=== PATIENT | male | born 1950 | race Caucasian/White ===

== ENCOUNTER → 2018-02-07 10:16 | Outpatient (CLI) | payer MEDICARE, OTHER, SELFPAY ==
[2018-02-07 11:35] LABS: Add Manual Diff / Slide Review NO; Basophils Percent Auto 0.7 % (0-2); Eosinophils Percent Auto 1.3 % (2-4); Hematocrit 38.6 % (41-53); Hemoglobin 13.6 g/dL (13.5-17.5); Lymphocytes Percent Auto 18.7 % (25-40); Mean Corpuscular HGB Conc 35.2 % (30-36); Mean Corpuscular Hemoglobin 32.8 PG (26-34); Mean Corpuscular Volume 93.2 fL (80-100); Monocytes Percent Auto 8.5 % (3-14); Neutrophils Absolute Auto 5700 /uL (3000-5900); Neutrophils Percent Auto 70.8 % (50-75); Platelet Count 217 X10^3/uL (150-400); Red Blood Cell Count 4.14 X10^6/uL (4.5-5.9)
[2018-02-07 11:54] LABS: Alanine Aminotransferase 32 IU/L (21-72); Albumin 4.3 g/dL (3.5-5.0); Albumin Globulin Ratio 1.4 (1.0-2.8); Alkaline Phosphatase 80 U/L (38-126); Aspartate Aminotransferase 33 IU/L (17-59); BUN Creatinine Ratio 41.4 (6-22); Bilirubin Total 0.6 mg/dL (0.2-1.3); Calcium 9.4 mg/dL (8.4-10.2); Estimated Glomerular Filt Rate > 60.0 mL/min (>60); Glucose 85 mg/dL (80-110); HEMOLYSIS < 15 (0-50); Potassium 3.9 mmol/L (3.4-5.1); Sodium 139 mmol/L (137-145); Total Protein 7.3 g/dL (6.3-8.2)
[2018-02-07 12:22] LABS: Testosterone 36.3 ng/dL (71.8-623)
[2018-02-07 12:23] LABS: Prostate Specific Antigen < 0.064 ng/mL (0.10-4.00)
[2018-02-09 18:58] LABS: 1 25 Dihydroxy Vitamin D 40 pg/mL (18-72)
== END ==
PROVIDERS: PCP Internal Medicine; Visit Provider Nurse Practitioner Gerontology
DX: C61 Malignant neoplasm of prostate (principal)
CPT/HCPCS: 36591; 80053; 82652; 84153; 84403; 85025

== ENCOUNTER → 2018-03-16 13:52 | Outpatient (CLI) | payer MEDICARE, OTHER, SELFPAY ==
[2018-03-16 14:09] LABS: Add Manual Diff / Slide Review NO; Basophils Percent Auto 0.9 % (0-2); Eosinophils Percent Auto 0.8 % (2-4); Hematocrit 40.2 % (41-53); Hemoglobin 13.9 g/dL (13.5-17.5); Lymphocytes Percent Auto 14.7 % (25-40); Mean Corpuscular HGB Conc 34.5 % (30-36); Mean Corpuscular Hemoglobin 32.6 PG (26-34); Mean Corpuscular Volume 94.3 fL (80-100); Monocytes Percent Auto 6.3 % (3-14); Neutrophils Absolute Auto 6300 /uL (3000-5900); Neutrophils Percent Auto 77.3 % (50-75); Platelet Count 254 X10^3/uL (150-400); Red Blood Cell Count 4.26 X10^6/uL (4.5-5.9); Red Cell Distribution Width 12.8 % (11.6-14.8); White Blood Cell Count 8.2 X10^3/uL (4.5-11.0)
[2018-03-16 14:24] LABS: Alanine Aminotransferase 29 IU/L (21-72); Albumin 4.3 g/dL (3.5-5.0); Albumin Globulin Ratio 1.5 (1.0-2.8); Alkaline Phosphatase 77 U/L (38-126); Aspartate Aminotransferase 30 IU/L (17-59); Bilirubin Total 0.7 mg/dL (0.2-1.3); Blood Urea Nitrogen 20 mg/dL (9-20); Calcium 9.6 mg/dL (8.4-10.2); Carbon Dioxide 30 mmol/L (22-32); Chloride 100 mmol/L (98-107); Estimated Glomerular Filt Rate > 60.0 mL/min (>60); Globulin 2.9 g/dL (1.7-4.1); Glucose 100 mg/dL (80-110); HEMOLYSIS < 15 (0-50); Potassium 4.2 mmol/L (3.4-5.1); Sodium 140 mmol/L (137-145); Total Protein 7.2 g/dL (6.3-8.2)
[2018-03-16 14:57] LABS: Testosterone 26.8 ng/dL (71.8-623)
[2018-03-16 15:00] LABS: Prostate Specific Antigen < 0.064 ng/mL (0.10-4.00)
== END ==
PROVIDERS: Family Provider Internal Medicine; PCP Internal Medicine; Visit Provider Nurse Practitioner Gerontology
DX: C61 Malignant neoplasm of prostate (principal)
CPT/HCPCS: 36415; 80053; 84153; 84403; 85025

== ENCOUNTER → 2018-06-13 14:47 | Outpatient (CLI) | payer MEDICARE, OTHER, SELFPAY ==
[2018-06-13 15:05] LABS: Add Manual Diff / Slide Review NO; Basophils Percent Auto 0.8 % (0-2); Eosinophils Percent Auto 0.4 % (2-4); Hematocrit 39.3 % (41-53); Hemoglobin 13.5 g/dL (13.5-17.5); Lymphocytes Percent Auto 13.9 % (25-40); Mean Corpuscular HGB Conc 34.4 % (30-36); Mean Corpuscular Hemoglobin 32.3 PG (26-34); Neutrophils Absolute Auto 7000 /uL (3000-5900); Neutrophils Percent Auto 78.9 % (50-75); Platelet Count 246 X10^3/uL (150-400); Red Blood Cell Count 4.18 X10^6/uL (4.5-5.9); Red Cell Distribution Width 12.5 % (11.6-14.8); White Blood Cell Count 8.8 X10^3/uL (4.5-11.0)
[2018-06-13 16:03] LABS: Alanine Aminotransferase 28 IU/L (21-72); Albumin 4.3 g/dL (3.5-5.0); Albumin Globulin Ratio 1.5 (1.0-2.8); Alkaline Phosphatase 87 U/L (38-126); Aspartate Aminotransferase 34 IU/L (17-59); BUN Creatinine Ratio 32.2 (6-22); Bilirubin Total 0.4 mg/dL (0.2-1.3); Blood Urea Nitrogen 29 mg/dL (9-20); Calcium 9.8 mg/dL (8.4-10.2); Carbon Dioxide 27 mmol/L (22-32); Chloride 105 mmol/L (98-107); Estimated Glomerular Filt Rate > 60.0 mL/min (>60); Globulin 2.9 g/dL (1.7-4.1); Glucose 109 mg/dL (80-110); HEMOLYSIS < 15 (0-50); Potassium 4.1 mmol/L (3.4-5.1); Sodium 143 mmol/L (137-145); Total Protein 7.2 g/dL (6.3-8.2)
[2018-06-13 16:35] LABS: Testosterone 18.3 ng/dL (71.8-623)
[2018-06-13 16:36] LABS: Prostate Specific Antigen < 0.064 ng/mL (0.10-4.00)
== END ==
PROVIDERS: Family Provider Internal Medicine; PCP Internal Medicine; Visit Provider Nurse Practitioner Gerontology
DX: C61 Malignant neoplasm of prostate (principal)
CPT/HCPCS: 36415; 80053; 84153; 84403; 85025

== ENCOUNTER 2018-07-05 11:54 | Day surgery (SDC) | payer MEDICARE, OTHER, SELFPAY ==
[2018-07-05 13:57] VITALS: BP 149/89; PULSE 65; RESP 16; TEMP 36; O2SAT 100; BMI 25.1
[2018-07-05] MEDS: PROPARACAINE 0.5% OPHTH SOL 2 DROPS EYE-OP (14:00)
[2018-07-05] MEDS: CATARACT EYE COMPOUND (10 DROPS/SYRINGE) 3 DROPS EYE-OP (14:10)
--- NOTE | 2018-07-05 14:44 | P.OP_ITS ---
Operative Date/Time/Diagnoses Pre-op diagnosis: Nuclear cataract right eye Procedure & Clinicians Procedure: Cataract Surgery Same procedure as scheduled: Yes Surgeon: James Lucia Anesthesia Type: MAC +/- and Sedation Operative Notes Procedure in detail: Patient brought to the operating suite. Tetracaine drops placed in the right eye. Patient was prepped and draped in sterile manner. Wire lid speculum was placed in the eye. Betadine drops were placed on the eye. This was irrigated. Lidocaine jelly was placed on the eye. A paracentesis port was created with a side-port blade. 0.1 mL 1% preservative free lidocaine was injected into the anterior chamber. The anterior chamber was deepened with viscoelastic. 2.6 mm keratome was used to create a temporal clear corneal incision. Cystotome and Utrata forceps were used to create continuous tear capsulorrhexis. Balanced salt solution was used to hydro dissect the nucleus. The phacoemulsification handpiece was inserted and the nucleus was removed using the stop and chop technique. The irrigation aspiration handpiece was inserted and the remaining cortex was removed. Anterior chamber was deepened with viscoelastic. An Crawford ZCB00 intraocular lens with a power of 21.5 was injected into the capsular bag. Irrigation aspiration handpiece was inserted and the remaining viscoelastic was removed. Incision was hydrated with balanced salt solution and found to be leak free with pressure with Weck- Adrianne sponges. 0.1 mL Vigamox injected anterior chamber. 0.3 mL Kenalog 10 mg was injected subconjunctivally. Lid speculum was removed. The patient left the operating room in excellent condition. Complications: none Condition: stable Disposition: same day surgery
--- NOTE | 2018-07-05 14:44 | P.OP.PRE_ITS ---
Pre-operative Note Interval Note Changes: No
--- NOTE | 2018-07-05 14:44 | PM.PREOP ---
Pre-operative Note Interval Note Changes: No
[2018-07-05] MEDS: PHENYLEPHRINE/LIDOCAINE VIAL (OR) 0.2 ML EYE-OP (15:01)
[2018-07-05] MEDS: CHONDROIDTIN/SOD HYALURONATE 1.05 ML SYRINGE INTRAOCULA (15:01)
[2018-07-05] MEDS: TRIAMCINOLONE 50 MG/5 ML VIAL INJ (15:01)
[2018-07-05] MEDS: MOXIFLOXACIN OPHTH DROPS 3 ML BOTTLE 2 DROPS INJ (15:01)
[2018-07-05] MEDS: LIDOCAINE JELLY 2% 5 ML 1 APPLIC TOP (15:02)
[2018-07-05] MEDS: TETRACAINE 0.5% OPHTH DROPS 15 ML 2 DROPS EYE-RIGHT (15:02)
[2018-07-05] MEDS: BALANCED SALT IRRIG SOLN NO.2 500 ML, EPINEPHrine 1 MG IRR (15:02)
[2018-07-05 15:16] VITALS: BP 107/74; PULSE 64; RESP 14; TEMP 36.2; O2SAT 99
[2018-07-05 15:22] VITALS: BP 118/77; PULSE 69; RESP 16; O2SAT 99
== END 2018-07-05 15:23 | disposition home or self-care (01) ==
LOC: OR 11:55
PROVIDERS: PCP Internal Medicine; Visit Provider Ophthalmology
DX: H25.11 Age-related nuclear cataract, right eye (principal); I10 Essential (primary) hypertension
CPT/HCPCS: J0171; J2250; J3010; J3301

== ENCOUNTER → 2018-09-01 10:42 | Outpatient (CLI) | payer MEDICARE, OTHER, SELFPAY ==
[2018-09-01 10:58] LABS: Add Manual Diff / Slide Review NO; Basophils Percent Auto 0.8 % (0-2); Eosinophils Percent Auto 0.9 % (2-4); Hematocrit 39.9 % (41-53); Lymphocytes Percent Auto 14.7 % (25-40); Mean Corpuscular HGB Conc 35.1 % (30-36); Mean Corpuscular Hemoglobin 32.5 PG (26-34); Mean Corpuscular Volume 92.6 fL (80-100); Monocytes Percent Auto 8.6 % (3-14); Neutrophils Absolute Auto 6400 /uL (3000-5900); Platelet Count 246 X10^3/uL (150-400); Red Blood Cell Count 4.31 X10^6/uL (4.5-5.9); White Blood Cell Count 8.6 X10^3/uL (4.5-11.0)
[2018-09-01 11:03] LABS: HEMOLYSIS < 15 (0-50)
[2018-09-01 11:09] LABS: Alanine Aminotransferase 30 IU/L (21-72); Albumin 4.5 g/dL (3.5-5.0); Albumin Globulin Ratio 1.5 (1.0-2.8); Alkaline Phosphatase 88 U/L (38-126); Aspartate Aminotransferase 30 IU/L (17-59); BUN Creatinine Ratio 31.3 (6-22); Bilirubin Total 0.7 mg/dL (0.2-1.3); Blood Urea Nitrogen 25 mg/dL (9-20); Calcium 9.7 mg/dL (8.4-10.2); Carbon Dioxide 28 mmol/L (22-32); Chloride 99 mmol/L (98-107); Estimated Glomerular Filt Rate > 60.0 mL/min (>60); Glucose 88 mg/dL (80-110); Potassium 4.1 mmol/L (3.4-5.1); Sodium 140 mmol/L (137-145); Total Protein 7.5 g/dL (6.3-8.2)
[2018-09-01 11:40] LABS: Prostate Specific Antigen < 0.064 ng/mL (0.10-4.00)
[2018-09-01 11:43] LABS: Testosterone 28.5 ng/dL (71.8-623)
--- NOTE | 2018-09-01 15:04 | PC.NURSE ---
stable labs, provider visit 09/06
== END ==
PROVIDERS: PCP Internal Medicine
DX: C61 Malignant neoplasm of prostate (principal)
CPT/HCPCS: 36415; 80053; 84153; 84403; 85025

== ENCOUNTER 2019-01-10 08:23 | Day surgery (SDC) | payer MEDICARE, OTHER, SELFPAY ==
[2019-01-10] MEDS: PROPARACAINE 0.5% OPHTH SOL 2 DROPS EYE-OP (08:59)
[2019-01-10] MEDS: CATARACT EYE COMPOUND (10 DROPS/SYRINGE) 3 DROPS EYE-OP (09:05)
[2019-01-10 09:10] VITALS: BP 132/85; PULSE 60; RESP 18; TEMP 36.4; O2SAT 100
[2019-01-10 09:11] VITALS: BMI 24.3
--- NOTE | 2019-01-10 10:02 | PM.PREOP ---
Pre-operative Note Interval Note History & Physical reviewed/Exam performed by Physician: No Changes to H&P: No
--- NOTE | 2019-01-10 10:02 | PM.OP.1 ---
Operative Date/Time/Diagnoses Pre-op diagnosis: Nuclear Cataract Left eye Post-op diagnosis: same Procedure & Clinicians Surgeon: James Lucia Anesthesia Type: MAC +/- and Sedation Operative Notes Procedure in detail: Patient brought to the operating suite. Tetracaine drops placed in the left eye. Patient was prepped and draped in sterile manner. Wire lid speculum was placed in the eye. Betadine drops were placed on the eye. This was irrigated. Lidocaine jelly was placed on the eye. A paracentesis port was created with a side-port blade. 0.1 mL 1% preservative free lidocaine was injected into the anterior chamber. The anterior chamber was deepened with viscoelastic. 2.6 mm keratome was used to create a temporal clear corneal incision. Cystotome and Utrata forceps were used to create continuous tear capsulorrhexis. Balanced salt solution was used to hydro dissect the nucleus. The phacoemulsification handpiece was inserted and the nucleus was removed using the stop and chop technique. The irrigation aspiration handpiece was inserted and the remaining cortex was removed. Anterior chamber was deepened with viscoelastic. An Crawford ZCB00 intraocular lens with a power of 20.0 was injected into the capsular bag. Irrigation aspiration handpiece was inserted and the remaining viscoelastic was removed. Incision was hydrated with balanced salt solution and found to be leak free with pressure with Weck-Adrianne sponges. 0.1 mL Vigamox injected anterior chamber. 0.3 mL Kenalog 10 mg was injected subconjunctivally. Lid speculum was removed. The patient left the operating room in excellent condition. Complications: none Condition: stable Disposition: same day surgery
[2019-01-10] MEDS: PHENYLEPHRINE/LIDOCAINE VIAL (OR) 0.2 ML EYE-OP (10:22)
[2019-01-10] MEDS: CHONDROIDTIN/SOD HYALURONATE 1.05 ML SYRINGE INTRAOCULA (10:23)
[2019-01-10] MEDS: MOXIFLOXACIN OPHTH DROPS 3 ML BOTTLE 2 DROPS INJ (10:23)
[2019-01-10] MEDS: TRIAMCINOLONE 50 MG/5 ML VIAL INJ (10:23)
[2019-01-10] MEDS: LIDOCAINE JELLY 2% 5 ML 1 APPLIC TOP (10:24)
[2019-01-10] MEDS: TETRACAINE 0.5% OPHTH DROPS 4 ML 2 DROPS EYE-OP (10:24)
[2019-01-10] MEDS: BALANCED SALT IRRIG SOLN NO.2 500 ML, EPINEPHrine 1 MG IRR (10:25)
[2019-01-10 10:32] VITALS: BP 100/70; PULSE 57; RESP 16; TEMP 36.7; O2SAT 98
--- NOTE | 2019-01-10 10:47 | SUR.PHASEII ---
Cheerful and pleasant, talkative, enjoying coffee, stable; denies any questions/concerns. Clothes given.
== END 2019-01-10 10:55 | disposition home or self-care (01) ==
LOC: OR 08:24
PROVIDERS: Family Provider Internal Medicine; PCP Internal Medicine; Visit Provider Ophthalmology
DX: H25.12 Age-related nuclear cataract, left eye (principal); I10 Essential (primary) hypertension
CPT/HCPCS: J0171; J2250; J3010; J3301

== ENCOUNTER → 2019-03-02 08:12 | Outpatient (CLI) | payer MEDICARE, OTHER, SELFPAY ==
[2019-03-02 09:09] LABS: Add Manual Diff / Slide Review NO; Basophils Absolute Auto 100 /uL (0-100); Basophils Percent Auto 1.4 % (0-2); Eosinophils Absolute Auto 200 /uL (0-450); Eosinophils Percent Auto 3.4 % (2-4); Hematocrit 36.4 % (41-53); Hemoglobin 12.7 g/dL (13.5-17.5); Lymphocytes Absolute Auto 1300 /uL (1100-4500); Lymphocytes Percent Auto 20.3 % (25-40); Mean Corpuscular HGB Conc 34.9 % (30-36); Mean Corpuscular Hemoglobin 32.6 PG (26-34); Mean Corpuscular Volume 93.4 fL (80-100); Monocytes Absolute Auto 600 /uL (0-900); Monocytes Percent Auto 9.6 % (3-14); Neutrophils Absolute Auto 4100 /uL (1500-7000); Neutrophils Percent Auto 65.3 % (50-75); Platelet Count 239 X10^3/uL (150-400); White Blood Cell Count 6.3 X10^3/uL (4.5-11.0)
[2019-03-02 09:34] LABS: Cholesterol 185 mg/dL (140-199); HDL Cholesterol 52 mg/dL (40-60); LDL Cholesterol Calculated 112 mg/dL (<100); Triglycerides 104 mg/dL (35-150)
[2019-03-02 09:34] LABS: Alanine Aminotransferase 20 IU/L (21-72); Albumin 3.9 g/dL (3.5-5.0); Albumin Globulin Ratio 1.4 (1.0-2.8); Alkaline Phosphatase 53 U/L (38-126); Aspartate Aminotransferase 29 IU/L (17-59); BUN Creatinine Ratio 32.5 (6-22); Bilirubin Total 0.6 mg/dL (0.2-1.3); Blood Urea Nitrogen 26 mg/dL (9-20); Calcium 9.6 mg/dL (8.4-10.2); Carbon Dioxide 29 mmol/L (22-32); Chloride 101 mmol/L (98-107); Estimated Glomerular Filt Rate > 60.0 mL/min (>60); Globulin 2.7 g/dL (1.7-4.1); Glucose 97 mg/dL (80-110); HEMOLYSIS < 15 (0-50); Potassium 4.1 mmol/L (3.4-5.1); Sodium 138 mmol/L (137-145); Total Protein 6.6 g/dL (6.3-8.2)
[2019-03-02 10:07] LABS: Prostate Specific Antigen < 0.064 ng/mL (0.10-4.00); Testosterone 31.2 ng/dL (71.8-623)
== END ==
PROVIDERS: Family Provider Internal Medicine; PCP Internal Medicine
DX: I10 Essential (primary) hypertension (principal); E78.2 Mixed hyperlipidemia; C61 Malignant neoplasm of prostate
CPT/HCPCS: 36415; 80053; 80061; 84153; 84403; 85025

== ENCOUNTER → 2019-07-11 11:42 | Outpatient (CLI) | payer MEDICARE, OTHER, SELFPAY ==
--- NOTE | 2019-07-11 | DI.RAD.S_ITS ---
PROCEDURE: XR FOOT LT MIN 3V INDICATIONS: Strain of unspecified muscle and tendon at ankle and foot le TECHNIQUE: 3 views of the foot were acquired. COMPARISON: None. FINDINGS: Bones: No fractures or dislocations. No suspicious bony lesions. Mild first MTP joint degeneration. 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 Degenerative sclerosis and spurring at the talonavicular joint Soft tissues: No tibiotalar joint effusion. Achilles tendon appears normal. IMPRESSION: Degenerative changes as above. Dictated by: Samir Milton M.D. on 07/11/2019 at 16:03 Approved by: Samir Milton M.D. on 07/11/2019 at 16:05
== END ==
PROVIDERS: Family Provider Internal Medicine; PCP Internal Medicine; Visit Provider Internal Medicine
DX: S96.912A Strain of unspecified muscle and tendon at ankle and foot level, left foot, initial encounter (principal); M19.072 Primary osteoarthritis, left ankle and foot
CPT/HCPCS: 73630

== ENCOUNTER → 2019-07-17 12:48 | Outpatient (CLI) | payer MEDICARE, OTHER, SELFPAY | PROVIDERS: PCP Internal Medicine; Visit Provider Internal Medicine | DX: M81.0 Age-related osteoporosis without current pathological fracture (principal); Z82.62 Family history of osteoporosis; Z85.46 Personal history of malignant neoplasm of prostate; Z87.891 Personal history of nicotine dependence | CPT/HCPCS: 77080 ==

== ENCOUNTER 2019-08-30 19:34 | Emergency (ER) | payer MEDICARE, OTHER, SELFPAY ==
--- NOTE | 2019-08-30 19:36 | DI.CT.S_ITS ---
PROCEDURE: CT HEAD/BRAIN WO CON INDICATIONS: Syncope TECHNIQUE: Noncontrast 4.5 mm thick angled axial sections acquired from the foramen magnum to the vertex, with coronal and sagittal reformats. For radiation dose reduction, the following was used: automated exposure control, adjustment of mA and/or kV according to patient size. COMPARISON: [facility], CT, HEAD WITHOUT CONTRAST, 03/18/2015, 10:59. FINDINGS: Image quality: Excellent. CSF spaces: Basal cisterns are patent. No extra-axial fluid collections. The ventricles are symmetric in size and shape. Brain: No intracranial bleeds or masses. There is cerebral volume loss for age, with resultant ventricular and sulcal prominence. There are periventricular and deep white matter chronic small vessel ischemic changes. There is intracranial internal carotid artery atherosclerosis. Skull and face: Calvarium and visualized facial bones appear intact, without suspicious lesions. Sinuses: Visualized sinuses and mastoids are clear. IMPRESSION: No acute intracranial process. Dictated by: Samir Milton M.D. on 08/30/2019 at 20:41 Approved by: Samir Milton M.D. on 08/30/2019 at 20:42
[2019-08-30 19:40] VITALS: BP 151/87; PULSE 73; RESP 21; O2SAT 99
[2019-08-30 19:51] LABS: Add Manual Diff / Slide Review NO; Basophils Absolute Auto 100 /uL (0-100); Eosinophils Absolute Auto 0 /uL (0-450); Eosinophils Percent Auto 0.2 % (2-4); Hematocrit 37.4 % (41-53); Lymphocytes Absolute Auto 600 /uL (1100-4500); Lymphocytes Percent Auto 7.8 % (25-40); Mean Corpuscular HGB Conc 34.7 % (30-36); Mean Corpuscular Hemoglobin 32.4 PG (26-34); Mean Corpuscular Volume 93.6 fL (80-100); Monocytes Absolute Auto 1000 /uL (0-900); Monocytes Percent Auto 12.3 % (3-14); Neutrophils Absolute Auto 6100 /uL (1500-7000); Neutrophils Percent Auto 78.7 % (50-75); Platelet Count 205 X10^3/uL (150-400); Red Cell Distribution Width 12.5 % (11.6-14.8); White Blood Cell Count 7.8 X10^3/uL (4.5-11.0)
[2019-08-30 19:58] LABS: Prothrombin Time 11.4 SECONDS (10.1-12.7)
[2019-08-30 20:00] LABS: PTT Partial Thromboplastin Tim 25 SECONDS (26.4-36.2)
[2019-08-30 20:02] LABS: Lipase 27 U/L (23-300)
[2019-08-30 20:04] LABS: Alanine Aminotransferase 21 IU/L (<50); Albumin 4.2 g/dL (3.5-5.0); Albumin Globulin Ratio 1.5 (1.0-2.8); Alkaline Phosphatase 86 U/L (38-126); Aspartate Aminotransferase 33 IU/L (17-59); BUN Creatinine Ratio 23.8 (6-22); Bilirubin Total 0.4 mg/dL (0.2-1.3); Blood Urea Nitrogen 19 mg/dL (9-20); Calcium 9.3 mg/dL (8.4-10.2); Carbon Dioxide 27 mmol/L (22-32); Chloride 98 mmol/L (98-107); Estimated Glomerular Filt Rate > 60.0 mL/min (>60); Ethanol (ETOH) < 10 mg/dL; Globulin 2.8 g/dL (1.7-4.1); Glucose 128 mg/dL (80-110); HEMOLYSIS < 15 (0-50); Potassium 3.8 mmol/L (3.4-5.1); Sodium 135 mmol/L (137-145)
[2019-08-30 20:13] LABS: Troponin I < 0.012 ng/mL (0.01-0.034)
--- NOTE | 2019-08-30 20:27 | PC.NURSE ---
Pt reports he has occasional unequal pupils due to eye surgery. Pt reports neck tenderness- states that when he passed out he was sitting in a pew at [employer] and he thinks he tweaked his neck. Denies cervical tenderness to palp, actually, that feels good. Alert and oriented. Family at bedside.
--- NOTE | 2019-08-30 20:30 | ED.GENADULT ---
HPI - General Adult General Chief complaint: Syncope Stated complaint: Syncope Time Seen by Provider: 08/30/19 19:35 Source: patient Mode of arrival: EMS Limitations: no limitations History of Present Illness HPI narrative: 68-year-old male brought in by EMS after having what appears to be a syncopal episode while he was at [employer]. Patient states that for the past day or so he has not felt very well. He states that earlier today he did take a nap which was not normal for him. He went to [employer] this evening. He was participating in some activities which he states did not cause him much issues. He states that he was standing singing a song when he suddenly became flushed. He states that he started to have tunnel vision. He stated that he felt like he was going to pass out. He did sit down and the next thing that he remembers were people around him asking him if he was okay. Prior to passing out he did not have any chest pain or shortness of breath. Did not have a headache. No loss of bowel or bladder. He knew where he was afterwards. The time of evaluation patient states he just felt tired but had no other symptoms. Related Data Home Medications Medication Instructions Recorded Confirmed CHOLECALCIFEROL (VITAMIN D) 2,000 iu PO QDAY #0 04/24/13 06/06/19 [FISH OIL] 1,200 mg PO QPM #0 04/24/13 06/06/19 ascorbic acid (vitamin C) 500 mg PO QAM #0 04/24/13 06/06/19 pravastatin 20 mg PO HS #0 04/24/13 06/06/19 cyanocobalamin (vitamin B-12) 1,000 mcg PO QDAY #0 08/26/16 06/06/19 ranitidine HCl 150 mg PO BEDTIME 02/08/18 06/06/19 cetirizine [Zyrtec] 10 mg PO DAILY PRN 03/17/18 06/06/19 abiraterone 1,000 mg PO DAILY 06/14/18 06/06/19 benazepril-hydrochlorothiazide 1 tab PO DAILY 12/27/18 06/06/19 abiraterone [Zytiga] 1,000 mg PO DAILY 01/10/19 06/06/19 Previous Rx's Medication Instructions Recorded prednisone 5 mg PO BID #180 tab 02/08/18 Allergies Allergy/AdvReac Type Severity Reaction Status Date / Time meperidine [From Demerol] Allergy Severe Anaphylaxis Verified 01/10/19 09:07 leuprolide [From Eligard] AdvReac Severe Headache Verified 01/10/19 09:07 Review of Systems Constitutional Constitutional: Denies chills, Reports fatigue, Denies fever(s), Denies headache(s) and Denies weakness Eyes Eyes: Denies change in vision ENT Ears, Nose, Mouth, and Throat: Denies vertigo, Denies headache(s), Denies disequilibrium and Denies sore throat Cardiovascular Cardiovascular: Denies chest pain, Reports syncope, Denies palpitations and Denies dyspnea Respiratory Respiratory: Denies dyspnea Gastrointestinal Gastrointestinal: Denies abdominal pain, Denies nausea and Denies vomiting Genitourinary Genitourinary: Denies dysuria Musculoskeletal Musculoskeletal: Denies myalgias, Denies arthralgias and Denies tingling Integumentary/Breasts Skin/Breast: Denies lesions and Denies rash Neurologic Neurologic: Denies abnormal movements, Denies abnormal speech, Denies behavioral changes, Denies burning sensations, Denies confusion, Denies vertigo, Reports syncope, Denies headache(s), Denies focal weakness, Denies tingling, Denies disequilibrium and Denies weakness Psychiatric Psychiatric: Denies behavioral changes and Denies confusion Endocrine Endocrine: Reports fatigue and Denies palpitations Hematologic/Lymphatic Hematologic/Lymphatic: Denies easy bruising Patient History Medical History Prostate cancer (Acute) Social History household members: spouse Smoking Status: Never smoker Smoking Status: Never smoker Exam Initial Vital Signs Initial Vital Signs: Vital Signs Pulse Rate 73 08/30/19 19:40 Respiratory Rate 21 08/30/19 19:40 Blood Pressure 151/87 H 08/30/19 19:40 Pulse Oximetry 99 08/30/19 19:40 Const General: cooperative and comfortable Orientation: alert, awake and oriented x3 HENMT Head: normal to inspection and normocephalic Resp Effort & Inspection: normal respiratory effort Auscultation: clear to auscultation bilaterally Cardio Rate: regular rate Rhythm: regular rhythm Pulses: radial pulses present GI Inspection: non-distended Palpation: soft and No firm Skin Lesions: no lesions Rashes: no rashes Neuro General: alert, awake and oriented x3 Cranial Nerves: CN's II-XI intact bilaterally Cognition: normal cognition Speech: speech normal Motor: muscle tone normal throughout Sensory Exam: no sensory deficits noted Extrem General: normal to inspection and capillary refill normal Psych Appearance: grossly normal and well kempt Scores GCS [place] coma scale eye opening: Spontaneous [place] coma scale verbal response: Orientated [place] coma scale motor response: Obey commands [place] coma scale total score: 15 Course Orders Ordered: ED Orders 08/30/19 19:36 CT head/brain wo con Stat EKG-12 Lead Stat 08/30/19 19:40 Complete Blood Count AUTO DIFF Stat Comprehensive Metabolic Panel Stat Ethanol (ETOH) Stat Lipase Stat Partial Thromboplastin Time Stat Prothrombin Time INR Stat Troponin I Stat Vital Signs Vital signs: Vital Signs - 8 hr 08/30/19 19:40 08/30/19 21:10 Pulse Rate 73 68 Respiratory Rate 21 14 Blood Pressure [Right Arm] 151/87 H 142/92 H Pulse Oximetry 99 98 Medical Decision Making Lab Data Lab results reviewed: Yes I reviewed the patient's lab results. Result diagrams: 08/30/19 19:40 08/30/19 19:40 Labs: Lab Results 08/30/19 08/30/19 08/30/19 Range/Units 19:40 19:40 19:40 WBC 7.8 (4.5-11.0) X10^3/uL RBC 4.00 L (4.5-5.9) X10^6/uL Hgb 13.0 L (13.5-17.5) g/dL Hct 37.4 L (41-53) % MCV 93.6 (80-100) fL MCH 32.4 (26-34) PG MCHC 34.7 (30-36) % RDW 12.5 (11.6-14.8) % Plt Count 205 (150-400) X10^3/uL Neut % (Auto) 78.7 H (50-75) % Lymph % (Auto) 7.8 L (25-40) % [place] % (Auto) 12.3 (3-14) % Eos % (Auto) 0.2 L (2-4) % Baso % (Auto) 1.0 (0-2) % Neut # (Auto) 6100 (6876-8025) /uL Lymph # (Auto) 600 L (5034-1997) /uL [place] # (Auto) 1000 H (0-900) /uL Eos # (Auto) 0 (0-450) /uL Baso # (Auto) 100 (0-100) /uL PT 11.4 (10.1-12.7) SECONDS INR 1.0 (0.9-1.3) APTT 25 L (26.4-36.2) SECONDS Sodium 135 L (137-145) mmol/L Potassium 3.8 (3.4-5.1) mmol/L Chloride 98 (98-107) mmol/L Carbon Dioxide 27 (22-32) mmol/L BUN 19 (9-20) mg/dL Creatinine 0.80 (0.66-1.25) mg/dL Estimated GFR > 60.0 (>60) mL/min BUN/Creatinine Ratio 23.8 H (6-22) Glucose 128 H (80-110) mg/dL Calcium 9.3 (8.4-10.2) mg/dL Total Bilirubin 0.4 (0.2-1.3) mg/dL AST 33 (17-59) IU/L ALT 21 (<50) IU/L Alkaline Phosphatase 86 (38-126) U/L Troponin I (0.01-0.034) ng/mL Total Protein 7.0 (6.3-8.2) g/dL Albumin 4.2 (3.5-5.0) g/dL Globulin 2.8 (1.7-4.1) g/dL Albumin/Globulin Ratio 1.5 (1.0-2.8) Lipase (23-300) U/L Ethyl Alcohol < 10 ( - 10) mg/dL 08/30/19 Range/Units 19:40 WBC (4.5-11.0) X10^3/uL RBC (4.5-5.9) X10^6/uL Hgb (13.5-17.5) g/dL Hct (41-53) % MCV (80-100) fL MCH (26-34) PG MCHC (30-36) % RDW (11.6-14.8) % Plt Count (150-400) X10^3/uL Neut % (Auto) (50-75) % Lymph % (Auto) (25-40) % [place] % (Auto) (3-14) % Eos % (Auto) (2-4) % Baso % (Auto) (0-2) % Neut # (Auto) (2549-2930) /uL Lymph # (Auto) (0448-8993) /uL [place] # (Auto) (0-900) /uL Eos # (Auto) (0-450) /uL Baso # (Auto) (0-100) /uL PT (10.1-12.7) SECONDS INR (0.9-1.3) APTT (26.4-36.2) SECONDS Sodium (137-145) mmol/L Potassium (3.4-5.1) mmol/L Chloride (98-107) mmol/L Carbon Dioxide (22-32) mmol/L BUN (9-20) mg/dL Creatinine (0.66-1.25) mg/dL Estimated GFR (>60) mL/min BUN/Creatinine Ratio (6-22) Glucose (80-110) mg/dL Calcium (8.4-10.2) mg/dL Total Bilirubin (0.2-1.3) mg/dL AST (17-59) IU/L ALT (<50) IU/L Alkaline Phosphatase (38-126) U/L Troponin I < 0.012 (0.01-0.034) ng/mL Total Protein (6.3-8.2) g/dL Albumin (3.5-5.0) g/dL Globulin (1.7-4.1) g/dL Albumin/Globulin Ratio (1.0-2.8) Lipase 27 (23-300) U/L Ethyl Alcohol ( - 10) mg/dL Imaging Data CT scan - head: Radiologist's impression: [address] [address] [address] Scan Report Signed Patient: Rubin La CMR#: [id number] : 9Acct:[id number] Age/Sex: 68 / MDate of Service: 08/30/19 Loc: ED Accession Number: [id number] Procedure: CT head/brain wo con Ordering Provider: Lanker,Jose Alejandro D.O. PROCEDURE: CT HEAD/BRAIN WO CON INDICATIONS: Syncope TECHNIQUE: Noncontrast 4.5 mm thick angled axial sections acquired from the foramen magnum to the vertex, with coronal and sagittal reformats. For radiation dose reduction, the following was used: automated exposure control, adjustment of mA and/or kV according to patient size. COMPARISON: [facility], CT, HEAD WITHOUT CONTRAST, 03/18/2015, 10:59. FINDINGS: Image quality: Excellent. CSF spaces: Basal cisterns are patent. No extra-axial fluid collections. The ventricles are symmetric in size and shape. Brain: No intracranial bleeds or masses. There is cerebral volume loss for age, with resultant ventricular and sulcal prominence. There are periventricular and deep white matter chronic small vessel ischemic changes. There is intracranial internal carotid artery atherosclerosis. Skull and face: Calvarium and visualized facial bones appear intact, without suspicious lesions. Sinuses: Visualized sinuses and mastoids are clear. IMPRESSION: No acute intracranial process. Dictated by: Samir Milton M.D. on 08/30/2019 at 20:41 Approved by: Samir Milton M.D. on 08/30/2019 at 20:42 ECG Data Attestation: I personally reviewed and interpreted this ECG as follows: Prior ECG tracings: not available for review Interpretation: Sinus rhythm One PVC Ventricular rate is 71 Normal axis Normal QRS Normal QTC No ST T wave changes MDM Narrative Medical decision making narrative: Patient has a normal neurologic exam. Is low risk by the by the [place] syncope risk score. Has a normal head CT. Unremarkable EKG. Unremarkable labs. I do suspect this was a vasovagal syncope. Low suspicion for arrhythmia. Low suspicion for TIA or CVA. Hold on further workup for now. Patient was given return precautions and follow-up instructions. He expressed understanding and agreement plan Discharge Plan Departure Patient Disposition: Home Clinical Impression: Syncope Qualifiers: Syncope type: unspecified Qualified Code(s): R55 - Syncope and collapse Discharge Date/Time: 08/30/19 21:32 Instructions: Fainting Activity Restrictions/Additional Instructions: Sure your staying hydrated. Take all of your medications as directed. Return to the emergency department for any new or worsening symptoms. Prescriptions: No Action ascorbic acid (vitamin C) 500 MG tablet 500 mg PO QAM Qty: 0 RF: 0 pravastatin 20 MG tablet 20 mg PO HS Qty: 0 RF: 0 CHOLECALCIFEROL (VITAMIN D) 2,000 iu PO QDAY Qty: 0 RF: 0 [FISH OIL] gel 1,200 mg PO QPM Qty: 0 RF: 0 cyanocobalamin (vitamin B-12) 1,000 MCG tablet extended release 1,000 mcg PO QDAY Qty: 0 RF: 0 ranitidine HCl 150 mg Tablet 150 mg PO BEDTIME RF: 0 prednisone 5 MG tablet 5 mg PO BID Qty: 180 RF: 1 cetirizine [Zyrtec] 10 mg Tablet 10 mg PO DAILY PRN (Reason: Allergy Symptoms) RF: 0 abiraterone 250 mg Tablet 1,000 mg PO DAILY RF: 0 benazepril-hydrochlorothiazide 20-12.5 mg Tablet 1 tab PO DAILY RF: 0 abiraterone [Zytiga] 250 mg Tablet 1,000 mg PO DAILY RF: 0 Referrals: Omer Lynn MD [Primary Care Provider] -
[2019-08-30 21:10] VITALS: BP 142/92; PULSE 68; RESP 14; O2SAT 98
--- NOTE | 2019-08-30 21:31 | PC.NURSE ---
Field placed PIV DC's from left FA.
== END 2019-08-30 21:32 | disposition home or self-care (01) ==
PROVIDERS: Emergency Provider Emergency Medicine; PCP Internal Medicine
DX: R55 Syncope and collapse (principal); C61 Malignant neoplasm of prostate
CPT/HCPCS: 70450; 80053; 80320; 83690; 84484; 85025; 85610; 85730; 93005; 99282; 99285

== ENCOUNTER → 2020-02-23 08:19 | Outpatient (CLI) | payer MEDICARE, OTHER, SELFPAY ==
[2020-02-23 08:53] LABS: Add Manual Diff / Slide Review NO; Basophils Absolute Auto 100 /uL (0-100); Eosinophils Absolute Auto 100 /uL (0-450); Eosinophils Percent Auto 1.8 % (2-4); Hematocrit 37.8 % (41-53); Hemoglobin 13.2 g/dL (13.5-17.5); Lymphocytes Absolute Auto 1400 /uL (1100-4500); Lymphocytes Percent Auto 20.2 % (25-40); Mean Corpuscular Hemoglobin 32.9 PG (26-34); Mean Corpuscular Volume 93.9 fL (80-100); Monocytes Absolute Auto 700 /uL (0-900); Monocytes Percent Auto 10.1 % (3-14); Neutrophils Absolute Auto 4600 /uL (1500-7000); Neutrophils Percent Auto 66.9 % (50-75); Platelet Count 251 X10^3/uL (150-400); Red Blood Cell Count 4.02 X10^6/uL (4.5-5.9); White Blood Cell Count 6.9 X10^3/uL (4.5-11.0)
[2020-02-23 09:08] LABS: Alanine Aminotransferase 21 IU/L (<50); Albumin 4.5 g/dL (3.5-5.0); Albumin Globulin Ratio 1.5 (1.0-2.8); Alkaline Phosphatase 106 U/L (38-126); Aspartate Aminotransferase 33 IU/L (17-59); BUN Creatinine Ratio 34.6 (6-22); Bilirubin Total 0.9 mg/dL (0.2-1.3); Blood Urea Nitrogen 27 mg/dL (9-20); Calcium 9.9 mg/dL (8.4-10.2); Carbon Dioxide 26 mmol/L (22-32); Chloride 102 mmol/L (98-107); Estimated Glomerular Filt Rate > 60.0 mL/min (>60); Glucose 100 mg/dL (80-110); HEMOLYSIS < 15 (0-50); Potassium 4.7 mmol/L (3.4-5.1); Sodium 136 mmol/L (137-145); Total Protein 7.5 g/dL (6.3-8.2)
[2020-02-23 09:40] LABS: Prostate Specific Antigen < 0.064 ng/mL (0.10-4.00)
[2020-02-23 09:42] LABS: Testosterone 59.6 ng/dL (71.8-623)
== END ==
PROVIDERS: PCP Internal Medicine; Referring Provider Internal Medicine Hematology & Oncology; Visit Provider Internal Medicine
DX: C61 Malignant neoplasm of prostate (principal)
CPT/HCPCS: 36415; 80053; 84153; 84403; 85025

== ENCOUNTER → 2020-07-12 12:05 | Outpatient (CLI) | payer MEDICARE, OTHER, SELFPAY ==
--- NOTE | 2020-07-12 | DI.RAD.S_ITS ---
PROCEDURE: XR HIP W PEL IF DONE RT 2V INDICATIONS: PAIN IN RIGHT THIGH TECHNIQUE: AP pelvis with lateral view(s) of the right hip(s). COMPARISON: None. FINDINGS: Bones: No fractures or dislocations but there is asymmetric hip joint osteoarthritis, moderate on the right and mild on the left. Pelvic ring appears intact. No suspicious bony lesions. Soft tissues: The visualized bowel gas pattern is normal. No suspicious soft tissue calcifications. Multiple surgical clips over the pelvis bilaterally potentially a manifestation of prior prostatectomy or bladder carcinoma surgery. No evidence of osseous metastatic disease is found. . 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 Prior presumed prostate or bladder carcinoma surgery. No metastatic disease seen. Dictated by: Pancho Alvarez M.D. on 07/12/2020 at 13:03 Approved by: Pancho Alvarez M.D. on 07/12/2020 at 13:04
== END ==
PROVIDERS: PCP Internal Medicine; Referring Provider Internal Medicine; Visit Provider Internal Medicine
DX: M79.651 Pain in right thigh (principal); M16.0 Bilateral primary osteoarthritis of hip
CPT/HCPCS: 73502

== ENCOUNTER → 2020-08-22 11:08 | Outpatient (CLI) | payer MEDICARE, OTHER, SELFPAY ==
[2020-08-22 11:52] LABS: Add Manual Diff / Slide Review NO; Basophils Absolute Auto 100 /uL (0-100); Basophils Percent Auto 0.7 % (0-2); Eosinophils Absolute Auto 0 /uL (0-450); Eosinophils Percent Auto 0.5 % (2-4); Hematocrit 38.2 % (41-53); Hemoglobin 13.1 g/dL (13.5-17.5); Lymphocytes Absolute Auto 1100 /uL (1100-4500); Lymphocytes Percent Auto 13.8 % (25-40); Mean Corpuscular HGB Conc 34.3 % (30-36); Mean Corpuscular Hemoglobin 32.1 PG (26-34); Mean Corpuscular Volume 93.8 fL (80-100); Monocytes Absolute Auto 500 /uL (0-900); Monocytes Percent Auto 6.4 % (3-14); Neutrophils Absolute Auto 6400 /uL (1500-7000); Neutrophils Percent Auto 78.6 % (50-75); Platelet Count 251 X10^3/uL (150-400); Red Blood Cell Count 4.07 X10^6/uL (4.5-5.9); Red Cell Distribution Width 12.7 % (11.6-14.8); White Blood Cell Count 8.1 X10^3/uL (4.5-11.0)
[2020-08-22 12:21] LABS: Alanine Aminotransferase 24 IU/L (<50); Albumin 4.3 g/dL (3.5-5.0); Albumin Globulin Ratio 1.3 (1.0-2.8); Alkaline Phosphatase 102 U/L (38-126); Aspartate Aminotransferase 33 IU/L (17-59); BUN Creatinine Ratio 29.7 (6-22); Bilirubin Total 0.7 mg/dL (0.2-1.3); Blood Urea Nitrogen 22 mg/dL (9-20); Calcium 9.6 mg/dL (8.4-10.2); Carbon Dioxide 30 mmol/L (22-32); Chloride 102 mmol/L (98-107); Cholesterol 201 mg/dL (140-199); Estimated Glomerular Filt Rate > 60.0 mL/min (>60); Globulin 3.2 g/dL (1.7-4.1); Glucose 105 mg/dL (80-110); HDL Cholesterol 49 mg/dL (40-60); HEMOLYSIS < 15 (0-50); LDL Cholesterol Calculated 114 mg/dL (<100); Potassium 4.1 mmol/L (3.4-5.1); Sodium 136 mmol/L (137-145); Total Protein 7.5 g/dL (6.3-8.2); Triglycerides 192 mg/dL (35-150)
[2020-08-22 12:50] LABS: Prostate Specific Antigen < 0.064 ng/mL (0.10-4.00)
[2020-08-28 15:02] LABS: Testosterone 37.5 ng/dL (71.8-623)
== END ==
PROVIDERS: Internal Medicine; Internal Medicine Hematology & Oncology; PCP Internal Medicine; Referring Provider Internal Medicine; Visit Provider Internal Medicine
DX: E78.2 Mixed hyperlipidemia (principal); C61 Malignant neoplasm of prostate
CPT/HCPCS: 36415; 80053; 80061; 84153; 84403; 85025

== ENCOUNTER 2020-12-10 09:00 | Outpatient (RCR) | payer MEDICARE, OTHER, SELFPAY ==
--- NOTE | 2020-10-22 14:06 | PT.OIE ---
Current Diagnoses Malignant neoplasm of prostate (10/16/20) Past Medical History (Last Reviewed 08/31/19 @ 01:36 by Jose Alejandro Thomas DO) Prostate cancer Visit Care Team Role Provider Type Omer Lynn MD Primary Care Provider Physician Specialty: Internal Medicine Address: [address] [place] [address], [id number] Email: [email or web address] Faustino Ramos MD Attending Provider Physician Referring Provider Specialty: Oncology Address: [address] [place] [address], [phone] Email: Physical Therapy Initial Evaluation PT-OP-A Visit Information Start: 10/16/20 09:45 Freq: Status: Active Protocol: Document 10/16/20 10:31 [facility] (Rec: 10/16/20 10:32 [facility] [id number]) Out-Patient Physical Therapy Visit Information Visit Information Visit Type Initial Evaluation Visit Start Time 10:30 Visit Stop Time 11:15 Total Visit Minutes 45 Visit Number 1 Evaluation Information Evaluation Date 10/16/20 PT-OP-B Current Condition Start: 10/16/20 09:45 Freq: Status: Active Protocol: Document 10/16/20 10:31 [facility] (Rec: 10/16/20 10:58 [facility] [id number]) Current Condition History of Current Condition Onset Date July 2020 Current Complaints right lower back pain with radicular symptoms down the anterior right leg History of Current Condition 38 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 He notes there were lymph nodes removed. 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 He then had chemo, then he had a thorocotomy had to spread his ribs and the mass was not into his lungs and was not into his spine. 7 years later he went in for his annual check up and his PSA was over 13. He went to a urologist and had the prostatectomy and some lymph nodes on the left side removed. 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 He was put on luporon. Maxx reports the Luporon stopped the cancer from growing but it depletes your muscle mass. 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 Then in 2017 his PSA juan again went to [facility] and was started with abiratazeme acetate 1000mg every morning at 6:00 am also takes the prednisone with this to offset liver damage. Then he started becomming osteopenic. His pain is right side and it moves towards the front and down the front of his leg. He had been lifting weights at the gym and soren stopped this. The sciatic pain is new since soren as he hasn't been able to go to the gym. Up until the first of September he was doing fine. He been working on planking, crunches, calf raises. at the gym he would warm up with the eliptical, leg press, TKE, stair climber, lumbar extension. He was also walking 3 xms per week. The sciatica has stopped hip from walking. He did get a upright bike. He doesn't have a flare afterwards, he walks around afterwards. maxx has a history of kappa gastroesophageal reflux disease currently controlled by famotidine. This does limit him from laying flat in the supine position. Treatment Goals Patient/Caregiver Goals Maxx's goals include eliminating the right sided hip pain and radicular symptoms he is experiencing and being able to continue with his exercise program Prior Functional Status Baseline Function- ADL's Independent Baseline Function- Mobility Independent Baseline Function- Recreation/Hobbies prior to soren Conklin was able to do workouts at the gym and it wasn't until this past fall that he began to experience the hip pain and radicular symptoms Current Functional Impairments (Reported) Functional Limitations- ADL's lifting increases pain, standing increases pain Functional Limitations- Mobility/Gait walking limitations due to radicular symptoms, pt is limited in walking more than 1 mile PT-OP-C Subjective Start: 10/16/20 09:45 Freq: Status: Active Protocol: Document 10/16/20 10:31 [facility] (Rec: 10/16/20 11:50 [facility] [email or web address]) Patient Questionnaires Oswestry Low Back Index Oswestry Score 10 Oswestry Impairment 1 to 19% Impaired (Score 1-19) OP-PT Pain Assessment Pain Assessment Grid Paper Pain Assessment Grid Completed Yes Location right hip and down the front of the right leg to the ankle Pain Location Details right posterior hip wrapping around to the front of the hip and leg Intensity 3 Scale Used Numeric (0 - 10) Description Radiating,Sharp,Shooting Frequency Intermittent PT-OP-K Range of Motion Start: 10/16/20 09:45 Freq: Status: Active Protocol: Document 10/16/20 10:31 [facility] (Rec: 10/16/20 11:44 [facility] [email or web address]) Lumbar Spine Range of Motion Lumbar Spine Active ROM Limitations Soft Tissue Tightness,Muscle Weakness Comments 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 He is tight with sidebending B Hip Goniometric Range of Motion Hip Left Hip ROM WFL No Testing Position Supine Flexion w/Knee Flexed 110 Straight Leg Raise 60 Abduction 20 Internal Rotation 15 External Rotation 15 Comments no pain reported left side Right Hip ROM WFL No Testing Position Supine Flexion w/Knee Flexed 90 Straight Leg Raise 40 Abduction 10 Internal Rotation 5 External Rotation 5 Comments very tight right hip with IR/ ER ROM Hip ROM Limitations Hip ROM Limitations Soft Tissue Tightness Comments right hip limited with hip IR/ ER with soft tissue tightness PT-OP-Q Treatments Start: 10/16/20 09:45 Freq: Status: Active Protocol: Document 10/16/20 10:31 [facility] (Rec: 10/16/20 11:40 [facility] [email or web address]) Therapeutic Exercises Supine Exercises modified amina stretch Reps/Minutes 1-2 reps hold 30-60 seconds hamstring nerve flossing in hooklying Supine Exercise Name hooklying hamstring stretch Side bilateral Reps/Minutes x 10 reps each hold 5-10 seconds single knee to chest Supine Exercise Name single knee to chest Side bilateral Reps/Minutes 2 reps hold 30-60 sec Standing Exercises standing wall slides Reps/Minutes x 10 reps Comments pt to start with just small ROM into shoulder abduction standing lumbar extension Standing Exercise Name standing lumbar extension Reps/Minutes 5-10 reps PT-OP-T Assessment and Plan Start: 10/16/20 09:45 Freq: Status: Active Protocol: Document 10/16/20 10:31 [facility] (Rec: 10/22/20 13:58 [facility] [email or web address]) Physical Therapy Assessment Rehab Potential Rehabilitation Potential Good Evaluation Complexity Number of Personal Factors/Comorbidities 3 or More Number of Body Systems Impaired 4 or More Clinical Presentation at Evaluation Evolving Impairments Impairments Functional Activities, Functional Mobility,Gait,Pain, Posture,ROM,Soft Tissue Mobility,Strength Goals right sided low back pain with radicular pain down the anterior leg to the knee Impairment Right sided low back pain with radicular pain down the anterior leg It Infrastructure Architect Goal (LTG) Pain is decreased from 3/10 to 1-2/10 and Rubin is no longer complaining of radicular symptoms. LTG Duration 8 weeks Decreased right hip ROM Impairment Right hip ROM decreased, + amina test right side Custodial Goal (LTG) Maxx demonstrates improved hip ROM right side and there is improved length of the iliopsoasd with negative amina test/ LTG Duration 8 weeks flexed forward posture Impairment Flexed forward posture Short Term Goal (STG) Rubin is educated on postural corrections and exercises to do for his posture at home STG Duration 4 weeks Custodial Goal (LTG) Rubin is able to interface designer upright posture without a forward bend in standing LTG Duration 8 weeks patient has pain with standing Impairment standing and walking increases pain in the low back and right LE Custodial Goal (LTG) Rubin is able to stand for up to a hour without a increase in his LE pain and is able to walk 2 miles without a increase in pain. LTG Duration 8 weeks Assessment Summary Assessment Maxx is a 69 year old male with an extensive history of cancer that began when he was 38 years old with testicular cancer. He was treated with right radical orchiectomy and pelvic radiation therapy. 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 In February 2007 he was treated for metastatic prostate cancer and underwent a prostatectomy . Postoperatively he received 3 years of androgen deprivation therapy through 2009. In January of 2012 his PSA juan. He was started on Lupron and took this until January of 2016 when his PSA juan again. He was then started on abiraterone 1000mg daily and prednisone 5 mg 2 xms per day. He is now osteopenic and had been exercising regularly at the gym until the covid 19 pandemic shut the gyms down. He began experiencing complaints of right sided low back right hip and groin pain in July 2020. He reports the pain radiated down his anterior thigh and walking will aggravate his symptoms. Pain prevents Maxx from walking more than 1 mile. 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 With examination today Maxx is standing in a forward flexed position. He is limited with his ilioposas flexibility B. He demonstrates full lumbar extension despite his forward posture and he reports that lumbar extension feels good to him. He is very limited in his right hip with IR/ER ROM and is tight in the gluteal region. Further work up is needed to measure circumference of his LE for lymphedema which we will do next visit. Maxx was educated in gentle iliopsoas stretches to begin with today and he was shown a wall stretch for his posture to do a few times a day. Maxx tolerated this well and is a good candidate for PT . Physical Therapy Plan Frequency and Duration Frequency of Treatment 2x/Week Duration of Treatment 8 Plan of Care Start Date 10/16/20 Plan of Care End Date 12/18/20 Therapeutic Interventions Therapeutic Interventions Home Exercise Program, Lymphedema Management,Manual Therapy,Patient/Caregiver Education,Self-Care/Home Management,Soft Tissue Mobilization,Therapeutic Exercises Next Visit Focus/Plan Next Note Type Treatment Note Next Visit Plan take circumferential measurements of the LE next visit, begin gentle lymph mobilizations for the right LE , hip mobility manual therapy and progressive strengthening and stretches as Maxx can tolerate.
--- NOTE | 2020-10-22 14:07 | PT.OPPOC ---
Physical, Occupational & Speech Therapy At [facility] Current Diagnoses Malignant neoplasm of prostate (10/16/20) Visit Care Team Role Provider Type Omer Lynn MD Primary Care Provider Physician Specialty: Internal Medicine Address: [address] [place] [address], [phone] Email: [email or web address] Faustino Ramos MD Attending Provider Physician Referring Provider Specialty: Oncology Address: [address] [place] [address], [phone] Email: Plan Of Care PT-OP-T Assessment and Plan Start: 10/16/20 09:45 Freq: Status: Active Protocol: Document 10/16/20 10:31 [facility] (Rec: 10/22/20 13:58 [facility] [email or web address]) Physical Therapy Assessment Rehab Potential Rehabilitation Potential Good Evaluation Complexity Number of Personal Factors/Comorbidities 3 or More Number of Body Systems Impaired 4 or More Clinical Presentation at Evaluation Evolving Impairments Impairments Functional Activities, Functional Mobility,Gait,Pain, Posture,ROM,Soft Tissue Mobility,Strength Goals right sided low back pain with radicular pain down the anterior leg to the knee Impairment Right sided low back pain with radicular pain down the anterior leg Shelter Goal (LTG) Pain is decreased from 3/10 to 1-2/10 and Rubin is no longer complaining of radicular symptoms. 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 LTG Duration 8 weeks Assessment Summary Assessment Maxx is a 69 year old male with an extensive history of cancer that began when he was 38 years old with testicular cancer. He was treated with right radical orchiectomy and pelvic radiation therapy. 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 In February 2007 he was treated for metastatic prostate cancer and underwent a prostatectomy . Postoperatively he received 3 years of androgen deprivation therapy through 2009. In January of 2012 his PSA juan. He was started on Lupron and took this until January of 2016 when his PSA juan again. He was then started on abiraterone 1000mg daily and prednisone 5 mg 2 xms per day. He is now osteopenic and had been exercising regularly at the gym until the pandemic shut the gyms down. He began experiencing complaints of right sided low back right hip and groin pain in July 2020. He reports the pain radiated down his anterior thigh and walking will aggravate his symptoms. Pain prevents Maxx from walking more than 1 mile. 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 With examination today Maxx is standing in a forward flexed position. He is limited with his ilioposas flexibility B. He demonstrates full lumbar extension despite his forward posture and he reports that lumbar extension feels good to him. He is very limited in his right hip with IR/ER ROM and is tight in the gluteal region. Further work up is needed to measure circumference of his LE for lymphedema which we will do next visit. Maxx was educated in gentle iliopsoas stretches to begin with today and he was shown a wall stretch for his posture to do a few times a day. Maxx tolerated this well and is a good candidate for PT . Physical Therapy Plan Frequency and Duration Frequency of Treatment 2x/Week Duration of Treatment 8 Plan of Care Start Date 10/16/20 Plan of Care End Date 12/18/20 Therapeutic Interventions Therapeutic Interventions Home Exercise Program, Lymphedema Management,Manual Therapy,Patient/Caregiver Education,Self-Care/Home Management,Soft Tissue Mobilization,Therapeutic Exercises Next Visit Focus/Plan Next Note Type Treatment Note Next Visit Plan take circumferential measurements of the LE next visit, begin gentle lymph mobilizations for the right LE , hip mobility manual therapy and progressive strengthening and stretches as Maxx can tolerate. Plan of Care Dates Plan of Care Start Date 10/16/20 Plan of Care End Date 12/18/20 Electronically Signed by: Judith Torres, CR 10/22/20 [id number] Please Sign and Return: I have reviewed this Plan of Care and certify that the skilled therapy services above are required to meet the patient?s needs. Physician Signature Date Printed Name and Credentials Clinical Instructor Signature Printed Name and Credentials
--- NOTE | 2020-10-29 17:27 | PT.OTN ---
Current Diagnoses Malignant neoplasm of prostate (10/29/20) Physical Therapy Treatment Note PT-OP-A Visit Information Start: 10/16/20 09:45 Freq: Status: Active Protocol: Document 10/29/20 09:53 [facility] (Rec: 10/29/20 09:54 [facility] [id number]) Out-Patient Physical Therapy Visit Information Visit Information Visit Type Treatment Note Visit Start Time 09:50 Visit Stop Time 10:30 Total Visit Minutes 40 Visit Number 2 PT-OP-B Current Condition Start: 10/16/20 09:45 Freq: Status: Active Protocol: Document 10/16/20 10:31 [facility] (Rec: 10/16/20 10:58 [facility] [id number]) Current Condition History of Current Condition Onset Date July 2020 Current Complaints right lower back pain with radicular symptoms down the anterior right leg History of Current Condition 38 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 He notes there were lymph nodes removed. 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 He then had chemo, then he had a thorocotomy had to spread his ribs and the mass was not into his lungs and was not into his spine. 7 years later he went in for his annual check up and his PSA was over 13. He went to a urologist and had the prostatectomy and some lymph nodes on the left side removed. 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 He was put on luporon. Frida reports the Luporon stopped the cancer from growing but it depletes your muscle mass. 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 Then in 2017 his PSA juan again went to [facility] and was started with abiratazeme acetate 1000mg every morning at 6:00 am also takes the prednisone with this to offset liver damage. Then he started becomming osteopenic. His pain is right side and it moves towards the front and down the front of his leg. He had been lifting weights at the gym and soren stopped this. The sciatic pain is new since soren as he hasn't been able to go to the gym. Up until the first of September he was doing fine. He been working on planking, crunches, calf raises. at the gym he would warm up with the eliptical, leg press, TKE, stair climber, lumbar extension. He was also walking 3 xms per week. The sciatica has stopped hip from walking. He did get a upright bike. He doesn't have a flare afterwards, he walks around afterwards. frida has a history of kappa gastroesophageal reflux disease currently controlled by famotidine. This does limit him from laying flat in the supine position. Treatment Goals Patient/Caregiver Goals Frida's goals include eliminating the right sided hip pain and radicular symptoms he is experiencing and being able to continue with his exercise program Prior Functional Status Baseline Function- ADL's Independent Baseline Function- Mobility Independent Baseline Function- Recreation/Hobbies prior to soren Rubin was able to do workouts at the gym and it wasn't until this past fall that he began to experience the hip pain and radicular symptoms Current Functional Impairments (Reported) Functional Limitations- ADL's lifting increases pain, standing increases pain Functional Limitations- Mobility/Gait walking limitations due to radicular symptoms, pt is limited in walking more than 1 mile PT-OP-C Subjective Start: 10/16/20 09:45 Freq: Status: Active Protocol: Document 10/29/20 09:55 [facility] (Rec: 10/29/20 09:56 [facility] [id number]) OP-PT Subjective Patient Comments Patient Comments pt reports he was able to get rid of the wedge pillow. He was doing really great but then this am found himself laying with his head down on the right side and he woke up with vertigo. It is a little better now that it was earlier this am. 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 He is tight with sidebending B Hip Goniometric Range of Motion Hip Left Hip ROM WFL No Testing Position Supine Flexion w/Knee Flexed 110 Straight Leg Raise 60 Abduction 20 Internal Rotation 15 External Rotation 15 Comments no pain reported left side Right Hip ROM WFL No Testing Position Supine Flexion w/Knee Flexed 90 Straight Leg Raise 40 Abduction 10 Internal Rotation 5 External Rotation 5 Comments very tight right hip with IR/ ER ROM Hip ROM Limitations Hip ROM Limitations Soft Tissue Tightness Comments right hip limited with hip IR/ ER with soft tissue tightness PT-OP-N Lymphedema Start: 10/29/20 17:16 Freq: Status: Active Protocol: Document 10/29/20 09:45 [facility] (Rec: 10/29/20 17:20 [facility] [email or web address]) Lymphedema Measurements Lower Extremity Circumference Measurements Left MT Heads 23 cm Medial Malleolus 25 cm 50 cm From Medial Malleolus 36.5 cm Knee Joint 39 cm Hip 55.5 cm - mid thigh is 44 cm Right Affected MT Heads 23.5 cm Medial Malleolus 25.5 cm 50 cm From Medial Malleolus 37 cm Knee Joint 39 cm Hip 56.5 cm - mid thigh is 46 cm Comments Lymphedema Comments small amount of swelling noted in the right inner thigh today. Pt notes by the end of the day his feet are swollen. He reports wearing copression stockings to the calf at times butn ot regularly. PT-OP-Q Treatments Start: 10/16/20 09:45 Freq: Status: Active Protocol: Document 10/29/20 09:45 [facility] (Rec: 10/29/20 17:27 [facility] [email or web address]) Therapeutic Exercises Supine Exercises diaphragmatic breathing Supine Exercise Name pt instructed in diaphragmatic breathing for home Reps/Minutes 5-7 reps 2 times per day Standing Exercises standing wall slides Reps/Minutes x 10 reps Comments pt to start with just small ROM into shoulder abduction Manual Therapy Treatment Manual Techniques WRAPPER COUNTER sequence Type WRAPPER COUNTER sequence Body Position Supine Comments LE sequence 5-7 xms each effleurage distal to proximal, diaphragm breath, supraclavicular inn's, inguinal inn's, popliteal inn' s, ankle inn's, return in proximal direction, diaphragm breath girth measurements takes for LE Body Position Supine Comments see section under lymphedema for measurments taken today PT-OP-T Assessment and Plan Start: 10/16/20 09:45 Freq: Status: Active Protocol: Document 10/29/20 09:45 [facility] (Rec: 10/29/20 17:27 [facility] [email or web address]) Physical Therapy Assessment Assessment Summary Assessment Focus was on LE edema today, Frida does note his low back is better with the stretches. We modified his standing wall slide exercise as he was having difficulty with this. WRAPPER COUNTER for the LE was initiated today. Physical Therapy Plan Frequency and Duration Frequency of Treatment 2x/Week Duration of Treatment 8 Plan of Care Start Date 10/16/20 Plan of Care End Date 12/18/20 Therapeutic Interventions Therapeutic Interventions Home Exercise Program, Lymphedema Management,Manual Therapy,Patient/Caregiver Education,Self-Care/Home Management,Soft Tissue Mobilization,Therapeutic Exercises Next Visit Focus/Plan Next Note Type Treatment Note Next Visit Plan WRAPPER COUNTER sequence, Stretches for the hip musles, manual hip mobility, progressive strengthening.
--- NOTE | 2020-11-12 15:39 | PT.OTN ---
Current Diagnoses Malignant neoplasm of prostate (11/12/20) Physical Therapy Treatment Note PT-OP-A Visit Information Start: 10/16/20 09:45 Freq: Status: Active Protocol: Document 11/12/20 09:03 [facility] (Rec: 11/12/20 09:09 [facility] [id number]) Out-Patient Physical Therapy Visit Information Visit Information Visit Type Treatment Note Visit Start Time 09:00 Visit Stop Time 09:45 Total Visit Minutes 45 Visit Number 3 PT-OP-B Current Condition Start: 10/16/20 09:45 Freq: Status: Active Protocol: Document 10/16/20 10:31 [facility] (Rec: 10/16/20 10:58 [facility] [id number]) Current Condition History of Current Condition Onset Date July 2020 Current Complaints right lower back pain with radicular symptoms down the anterior right leg History of Current Condition 38 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 He notes there were lymph nodes removed. 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 He then had chemo, then he had a thorocotomy had to spread his ribs and the mass was not into his lungs and was not into his spine. 7 years later he went in for his annual check up and his PSA was over 13. He went to a urologist and had the prostatectomy and some lymph nodes on the left side removed. 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 He was put on luporon. Frida reports the Luporon stopped the cancer from growing but it depletes your muscle mass. 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 Then in 2017 his PSA juan again went to [facility] and was started with abiratazeme acetate 1000mg every morning at 6:00 am also takes the prednisone with this to offset liver damage. Then he started becomming osteopenic. His pain is right side and it moves towards the front and down the front of his leg. He had been lifting weights at the gym and soren stopped this. The sciatic pain is new since soren as he hasn't been able to go to the gym. Up until the first of September he was doing fine. He been working on planking, crunches, calf raises. at the gym he would warm up with the eliptical, leg press, TKE, stair climber, lumbar extension. He was also walking 3 xms per week. The sciatica has stopped hip from walking. He did get a upright bike. He doesn't have a flare afterwards, he walks around afterwards. frida has a history of kappa gastroesophageal reflux disease currently controlled by famotidine. This does limit him from laying flat in the supine position. Treatment Goals Patient/Caregiver Goals Frida's goals include eliminating the right sided hip pain and radicular symptoms he is experiencing and being able to continue with his exercise program Prior Functional Status Baseline Function- ADL's Independent Baseline Function- Mobility Independent Baseline Function- Recreation/Hobbies prior to soren Rubin was able to do workouts at the gym and it wasn't until this past fall that he began to experience the hip pain and radicular symptoms Current Functional Impairments (Reported) Functional Limitations- ADL's lifting increases pain, standing increases pain Functional Limitations- Mobility/Gait walking limitations due to radicular symptoms, pt is limited in walking more than 1 mile PT-OP-C Subjective Start: 10/16/20 09:45 Freq: Status: Active Protocol: Document 11/12/20 09:03 [facility] (Rec: 11/12/20 09:09 [facility] [id number]) OP-PT Subjective Patient Comments Patient Comments pt reports he is doing better and has been doing the diaghragmatic breathing. The Femoral nerve pain is decreased. dealing with with the vertigo. 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 He is tight with sidebending B Hip Goniometric Range of Motion Hip Left Hip ROM WFL No Testing Position Supine Flexion w/Knee Flexed 110 Straight Leg Raise 60 Abduction 20 Internal Rotation 15 External Rotation 15 Comments no pain reported left side Right Hip ROM WFL No Testing Position Supine Flexion w/Knee Flexed 90 Straight Leg Raise 40 Abduction 10 Internal Rotation 5 External Rotation 5 Comments very tight right hip with IR/ ER ROM Hip ROM Limitations Hip ROM Limitations Soft Tissue Tightness Comments right hip limited with hip IR/ ER with soft tissue tightness PT-OP-N Lymphedema Start: 10/29/20 17:16 Freq: Status: Active Protocol: Document 10/29/20 09:45 [facility] (Rec: 10/29/20 17:20 [facility] [email or web address]) Lymphedema Measurements Lower Extremity Circumference Measurements Left MT Heads 23 cm Medial Malleolus 25 cm 50 cm From Medial Malleolus 36.5 cm Knee Joint 39 cm Hip 55.5 cm - mid thigh is 44 cm Right Affected MT Heads 23.5 cm Medial Malleolus 25.5 cm 50 cm From Medial Malleolus 37 cm Knee Joint 39 cm Hip 56.5 cm - mid thigh is 46 cm Comments Lymphedema Comments small amount of swelling noted in the right inner thigh today. Pt notes by the end of the day his feet are swollen. He reports wearing copression stockings to the calf at times butn ot regularly. PT-OP-Q Treatments Start: 10/16/20 09:45 Freq: Status: Active Protocol: Document 11/12/20 09:10 [facility] (Rec: 11/12/20 09:50 [facility] [id number]) Therapeutic Exercises Supine Exercises figure 4 stretch Supine Exercise Name figure 4 stretch Reps/Minutes hold 1-2 minutes diaphragmatic breathing Supine Exercise Name pt instructed in diaphragmatic breathing for home Reps/Minutes 5-7 reps 2 times per day jim huynh stretch Reps/Minutes 1-2 reps hold 30-60 seconds hamstring nerve flossing in hooklying Supine Exercise Name hooklying hamstring stretch Side bilateral Reps/Minutes x 10 reps each hold 5-10 seconds single knee to chest Supine Exercise Name single knee to chest Side bilateral Reps/Minutes 2 reps hold 30-60 sec Standing Exercises standing towards the wall rolling the foam rollar up the wall Standing Exercise Name foam roller standing wall slides Comments pt really liked this exercise and facing the wall didn't irritate his back. Manual Therapy Treatment Soft Tissue Mobilization manual release of the iliopsoas and quads Body Location iliopsoas and quads Mobilization Type Myofascial Release Body Position Hooklying Comments in amina test position PT-OP-T Assessment and Plan Start: 10/16/20 09:45 Freq: Status: Active Protocol: Document 11/12/20 15:37 [facility] (Rec: 11/12/20 15:38 [facility] [email or web address]) Physical Therapy Assessment Assessment Summary Assessment Frida is noticing a decrease in nerve pain, he is dry brushing now for lymphatic flow and feels this is helping with the swelling as well. I was able to modify his wall exercise to facing the wall with a foam roller today and standing with his back against the wall irritated his spine. Physical Therapy Plan Frequency and Duration Frequency of Treatment 2x/Week Duration of Treatment 8 Plan of Care Start Date 10/16/20 Plan of Care End Date 12/18/20 Next Visit Focus/Plan Next Note Type Treatment Note Next Visit Plan CLINICAL APPLICATIONS SPECIALIST sequence, Stretches for the hip musles, manual hip mobility, progressive strengthening.
--- NOTE | 2020-11-26 14:55 | PT.OTN ---
Current Diagnoses Malignant neoplasm of prostate (11/26/20) Physical Therapy Treatment Note PT-OP-A Visit Information Start: 10/16/20 09:45 Freq: Status: Active Protocol: Document 11/26/20 14:44 [facility] (Rec: 11/26/20 14:45 [facility] [id number]) Out-Patient Physical Therapy Visit Information Visit Information Visit Type Treatment Note Visit Start Time 09:00 Visit Stop Time 09:45 Total Visit Minutes 45 Visit Number 4 PT-OP-B Current Condition Start: 10/16/20 09:45 Freq: Status: Active Protocol: Document 10/16/20 10:31 [facility] (Rec: 10/16/20 10:58 [facility] [id number]) Current Condition History of Current Condition Onset Date July 2020 Current Complaints right lower back pain with radicular symptoms down the anterior right leg History of Current Condition 38 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 He notes there were lymph nodes removed. 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 He then had chemo, then he had a thorocotomy had to spread his ribs and the mass was not into his lungs and was not into his spine. 7 years later he went in for his annual check up and his PSA was over 13. He went to a urologist and had the prostatectomy and some lymph nodes on the left side removed. 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 He was put on luporon. Frida reports the Luporon stopped the cancer from growing but it depletes your muscle mass. 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 Then in 2017 his PSA juan [facility] and was started with abiratazeme acetate 1000mg every morning at 6:00 am also takes the prednisone with this to offset liver damage. Then he started becomming osteopenic. His pain is right side and it moves towards the front and down the front of his leg. He had been lifting weights at the gym and soren stopped this. The sciatic pain is new since soren as he hasn't been able to go to the gym. Up until the first of September he was doing fine. He been working on planking, crunches, calf raises. at the gym he would warm up with the eliptical, leg press, TKE, stair climber, lumbar extension. He was also walking 3 xms per week. The sciatica has stopped hip from walking. He did get a upright bike. He doesn't have a flare afterwards, he walks around afterwards. frida has a history of kappa gastroesophageal reflux disease currently controlled by famotidine. This does limit him from laying flat in the supine position. Treatment Goals Patient/Caregiver Goals Frida's goals include eliminating the right sided hip pain and radicular symptoms he is experiencing and being able to continue with his exercise program Prior Functional Status Baseline Function- ADL's Independent Baseline Function- Mobility Independent Baseline Function- Recreation/Hobbies prior to covid Rubin was able to do workouts at the gym and it wasn't until this past fall that he began to experience the hip pain and radicular symptoms Current Functional Impairments (Reported) Functional Limitations- ADL's lifting increases pain, standing increases pain Functional Limitations- Mobility/Gait walking limitations due to radicular symptoms, pt is limited in walking more than 1 mile PT-OP-C Subjective Start: 10/16/20 09:45 Freq: Status: Active Protocol: Document 11/26/20 09:09 [facility] (Rec: 11/26/20 11:05 [facility] [id number]) OP-PT Subjective Patient Comments Patient Comments pt repots he got his second covid 19 vaccine last wednesday. He has noticed some right sided leg symptoms with his leg feeling weak when he first gets up. He did get a foam roll and has been able to stretch with it. He did feel his low back and a kink in his neck and right leg. More soreness and the feeling of the leg giving out a bit. No complaints of sciatic symptoms . 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 He is tight with sidebending B Hip Goniometric Range of Motion Hip Left Hip ROM WFL No Testing Position Supine Flexion w/Knee Flexed 110 Straight Leg Raise 60 Abduction 20 Internal Rotation 15 External Rotation 15 Comments no pain reported left side Right Hip ROM WFL No Testing Position Supine Flexion w/Knee Flexed 90 Straight Leg Raise 40 Abduction 10 Internal Rotation 5 External Rotation 5 Comments very tight right hip with IR/ ER ROM Hip ROM Limitations Hip ROM Limitations Soft Tissue Tightness Comments right hip limited with hip IR/ ER with soft tissue tightness PT-OP-N Lymphedema Start: 10/29/20 17:16 Freq: Status: Active Protocol: Document 10/29/20 09:45 [facility] (Rec: 10/29/20 17:20 [facility] [email or web address]) Lymphedema Measurements Lower Extremity Circumference Measurements Left MT Heads 23 cm Medial Malleolus 25 cm 50 cm From Medial Malleolus 36.5 cm Knee Joint 39 cm Hip 55.5 cm - mid thigh is 44 cm Right Affected MT Heads 23.5 cm Medial Malleolus 25.5 cm 50 cm From Medial Malleolus 37 cm Knee Joint 39 cm Hip 56.5 cm - mid thigh is 46 cm Comments Lymphedema Comments small amount of swelling noted in the right inner thigh today. Pt notes by the end of the day his feet are swollen. He reports wearing copression stockings to the calf at times butn ot regularly. PT-OP-Q Treatments Start: 10/16/20 09:45 Freq: Status: Active Protocol: Document 11/26/20 09:09 [facility] (Rec: 11/26/20 11:05 [facility] [id number]) Therapeutic Exercises Supine Exercises ball squeeze with pelvic floor contraction Reps/Minutes x 10 holding 5 seconds each TA with marches Supine Exercise Name TA with marches Side bilateral Reps/Minutes x 20 reps Comments most of the time now Frida states he is able to lift his right leg now figure 4 stretch Supine Exercise Name figure 4 stretch Reps/Minutes hold 1-2 minutes jim huynh stretch Reps/Minutes 1-2 reps hold 30-60 seconds Sitting Exercises sit to stand with TA engagement Reps/Minutes with standing from sitting Manual Therapy Treatment Soft Tissue Mobilization manual release of the iliopsoas and quads Body Location iliopsoas and quads Mobilization Type Myofascial Release Body Position Hooklying Comments in amina test position Manual Techniques MET Right anterior innominant Type MET Right anterior innominant Comments good tolerance, ended with adductor bilateral squeeze. Pt felt better with standing and walking after treatment PT-OP-T Assessment and Plan Start: 10/16/20 09:45 Freq: Status: Active Protocol: Document 11/26/20 14:46 [facility] (Rec: 11/26/20 14:54 [facility] [email or web address]) Physical Therapy Assessment Assessment Summary Assessment Frida had his second covic vaccine last week a few days afterward he rode his stationary bike for 30 minutes and this was the longest he has done. Afterwards he noted that his right leg wanted to give out on him. Today he notes that the first couple of steps he takes he feels unstable with pain right SI joint and feels like the leg will give out. I worked today on abdominal stabilization, taught him to brace with his core prior to standing up. I also added in TA with candace. MET was performed for the right side for anterior rotation. This was followed up with isometric adduction. Frida felt better today after treatment and was able to walk with decreased complaints of the leg giving out. He also did have a little more swelling today in the right groin. It is possible this is temporary from the covid vaccine. Physical Therapy Plan Frequency and Duration Frequency of Treatment 2x/Week Duration of Treatment 8 Plan of Care Start Date 10/16/20 Plan of Care End Date 12/18/20 Therapeutic Interventions Therapeutic Interventions Home Exercise Program, Lymphedema Management,Manual Therapy,Patient/Caregiver Education,Self-Care/Home Management,Soft Tissue Mobilization,Therapeutic Exercises Next Visit Focus/Plan Next Note Type Treatment Note Next Visit Plan reassess SI joint next visit and review core stabilization exercises. Continue with hip flexibility
--- NOTE | 2020-12-10 17:12 | PT.OTN ---
Current Diagnoses Malignant neoplasm of prostate (12/10/20) Physical Therapy Treatment Note PT-OP-A Visit Information Start: 10/16/20 09:45 Freq: Status: Active Protocol: Document 12/10/20 09:00 [facility] (Rec: 12/10/20 09:29 [facility] [id number]) Out-Patient Physical Therapy Visit Information Visit Information Visit Type Treatment Note Visit Start Time 09:00 Visit Stop Time 09:45 Total Visit Minutes 45 Visit Number 5 PT-OP-B Current Condition Start: 10/16/20 09:45 Freq: Status: Active Protocol: Document 10/16/20 10:31 [facility] (Rec: 10/16/20 10:58 [facility] [id number]) Current Condition History of Current Condition Onset Date July 2020 Current Complaints right lower back pain with radicular symptoms down the anterior right leg History of Current Condition 38 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 He notes there were lymph nodes removed. 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 He then had chemo, then he had a thorocotomy had to spread his ribs and the mass was not into his lungs and was not into his spine. 7 years later he went in for his annual check up and his PSA was over 13. He went to a urologist and had the prostatectomy and some lymph nodes on the left side removed. 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 He was put on luporon. Frida reports the Luporon stopped the cancer from growing but it depletes your muscle mass. 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 Then in 2017 his PSA juan again went to [facility] and was started with abiratazeme acetate 1000mg every morning at 6:00 am also takes the prednisone with this to offset liver damage. Then he started becomming osteopenic. His pain is right side and it moves towards the front and down the front of his leg. He had been lifting weights at the gym and soren stopped this. The sciatic pain is new since soren as he hasn't been able to go to the gym. Up until the first of September he was doing fine. He been working on planking, crunches, calf raises. at the gym he would warm up with the eliptical, leg press, TKE, stair climber, lumbar extension. He was also walking 3 xms per week. The sciatica has stopped hip from walking. He did get a upright bike. He doesn't have a flare afterwards, he walks around afterwards. frida has a history of kappa gastroesophageal reflux disease currently controlled by famotidine. This does limit him from laying flat in the supine position. Treatment Goals Patient/Caregiver Goals Frida's goals include eliminating the right sided hip pain and radicular symptoms he is experiencing and being able to continue with his exercise program Prior Functional Status Baseline Function- ADL's Independent Baseline Function- Mobility Independent Baseline Function- Recreation/Hobbies prior to soren Rubin was able to do workouts at the gym and it wasn't until this past fall that he began to experience the hip pain and radicular symptoms Current Functional Impairments (Reported) Functional Limitations- ADL's lifting increases pain, standing increases pain Functional Limitations- Mobility/Gait walking limitations due to radicular symptoms, pt is limited in walking more than 1 mile PT-OP-C Subjective Start: 10/16/20 09:45 Freq: Status: Active Protocol: Document 12/10/20 09:00 [facility] (Rec: 12/10/20 09:29 [facility] [id number]) OP-PT Subjective Patient Comments Patient Comments pt reports he is doing much better overall with his back . HE still experiencies the intermittent weakness of his right LE. 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 He is tight with sidebending B Hip Goniometric Range of Motion Hip Left Hip ROM WFL No Testing Position Supine Flexion w/Knee Flexed 110 Straight Leg Raise 60 Abduction 20 Internal Rotation 15 External Rotation 15 Comments no pain reported left side Right Hip ROM WFL No Testing Position Supine Flexion w/Knee Flexed 90 Straight Leg Raise 40 Abduction 10 Internal Rotation 5 External Rotation 5 Comments very tight right hip with IR/ ER ROM Hip ROM Limitations Hip ROM Limitations Soft Tissue Tightness Comments right hip limited with hip IR/ ER with soft tissue tightness PT-OP-N Lymphedema Start: 10/29/20 17:16 Freq: Status: Active Protocol: Document 10/29/20 09:45 [facility] (Rec: 10/29/20 17:20 [facility] [id number]) Lymphedema Measurements Lower Extremity Circumference Measurements Left MT Heads 23 cm Medial Malleolus 25 cm 50 cm From Medial Malleolus 36.5 cm Knee Joint 39 cm Hip 55.5 cm - mid thigh is 44 cm Right Affected MT Heads 23.5 cm Medial Malleolus 25.5 cm 50 cm From Medial Malleolus 37 cm Knee Joint 39 cm Hip 56.5 cm - mid thigh is 46 cm Comments Lymphedema Comments small amount of swelling noted in the right inner thigh today. Pt notes by the end of the day his feet are swollen. He reports wearing copression stockings to the calf at times butn ot regularly. PT-OP-Q Treatments Start: 10/16/20 09:45 Freq: Status: Active Protocol: Document 12/10/20 09:00 [facility] (Rec: 12/10/20 09:29 [facility] [id number]) Therapeutic Exercises Supine Exercises ball squeeze with pelvic floor contraction Reps/Minutes x 10 holding 5 seconds each TA with marches Supine Exercise Name TA with marches Side bilateral Reps/Minutes x 20 reps Comments most of the time now Frida states he is able to lift his right leg now figure 4 stretch Supine Exercise Name figure 4 stretch Reps/Minutes hold 1-2 minutes diaphragmatic breathing Supine Exercise Name pt instructed in diaphragmatic breathing for home Reps/Minutes 5-7 reps 2 times per day jim huynh stretch Reps/Minutes 1-2 reps hold 30-60 seconds hamstring nerve flossing in hooklying Supine Exercise Name hooklying hamstring stretch Side bilateral Reps/Minutes x 10 reps each hold 5-10 seconds single knee to chest Supine Exercise Name single knee to chest Side bilateral Reps/Minutes 2 reps hold 30-60 sec Sitting Exercises sit to stand with TA engagement Reps/Minutes with standing from sitting Standing Exercises standing towards the wall rolling the foam rollar up the wall Standing Exercise Name foam roller standing wall slides Comments pt really liked this exercise and facing the wall didn't irritate his back. standing wall slides Reps/Minutes x 10 reps Comments pt to start with just small ROM into shoulder abduction standing lumbar extension Standing Exercise Name standing lumbar extension Reps/Minutes 5-10 reps PT-OP-T Assessment and Plan Start: 10/16/20 09:45 Freq: Status: Active Protocol: Document 12/10/20 09:00 [facility] (Rec: 12/10/20 17:12 [facility] [id number]) Physical Therapy Assessment Goals right sided low back pain with radicular pain down the anterior leg to the knee Impairment Right sided low back pain with radicular pain down the anterior leg Half-Way Goal (LTG) Pain is decreased from 3/10 to 1-2/10 and Rubin is no longer complaining of radicular symptoms. EXCELLENT PROGRESS, no pain in the low back now he does have intermittent right leg weakness in the hip with hip flexion LTG Duration 8 weeks Decreased right hip ROM Impairment Right hip ROM decreased, + amina test right side Half-Way Goal (LTG) Frida demonstrates improved hip ROM right side and there is improved length of the iliopsoasd with negative amina test/ GOAL MET LTG Duration 8 weeks flexed forward posture Impairment Flexed forward posture Short Term Goal (STG) Rubin is educated on postural corrections and exercises to do for his posture at home GOAL MET STG Duration 4 weeks Half-Way Goal (LTG) Rubin is able to machinist upright posture without a forward bend in standing GOAL MET LTG Duration 8 weeks patient has pain with standing Impairment standing and walking increases pain in the low back and right LE Surgical Aides Teacher Goal (LTG) Rubin is able to stand for up to a hour without a increase in his LE pain and is able to walk 2 miles without a increase in pain. Excellent progress LTG Duration 8 weeks Assessment Summary Assessment Frida has been seen for 5 visits in PT. He is feeling better overall with his low back and isn't having the pain in his back. He still c/o intermittent right sided leg weakness. HE notes he will have a few really good days and then a couple of days where his right leg feels week . At this point he is feeling good with the exercises he is working with for home. He is leaving for 6 weeks for a road trip and will continue to work on his exercises. The plan is to DC him from PT at this time and if he needs any further treatment I am happy to work with him again upon return from his trip. Physical Therapy Plan Discharge Physical Therapy Discharge Reasons Patient Request Discharge Comments Pt is heading out of town for 6 weeks. He feel independent with his HEP
== END 2020-12-13 10:07 | disposition home or self-care (01) ==
LOC: PHYS 09:00
PROVIDERS: PCP Internal Medicine; Referring Provider Internal Medicine; Visit Provider Internal Medicine
DX: C61 Malignant neoplasm of prostate (principal)
CPT/HCPCS: 97110; 97140; 97162

== ENCOUNTER → 2021-03-03 11:23 | Outpatient (CLI) | payer MEDICARE, OTHER, SELFPAY ==
--- NOTE | 2021-03-03 11:24 | DI.RAD.S_ITS ---
PROCEDURE: XR THORACIC SPINE 3V INDICATIONS: Progressive kyphosis, prostate cancer, looking for fracture TECHNIQUE: 3 views of the thoracic spine were acquired. COMPARISON: [facility], CT, CHEST/ABD/PEL WITH CONTRAST, 02/03/2016, 13:02. FINDINGS: Bones: No acute fracture identified. Chronic mild T11 vertebral body height loss appears grossly unchanged. Multilevel degenerative endplate sclerosis and spurring. Diffuse facet arthropathy. Increased thoracolumbar kyphosis. Soft tissues: No paravertebral stripe thickening. IMPRESSION: Thoracolumbar kyphosis. No definite acute fracture seen. If the patient's pain or other symptoms persist, consider further evaluation with MRI Diffuse discogenic changes. Dictated by: Samir Milton M.D. on 03/03/2021 at 13:33 Approved by: Samir Milton M.D. on 03/03/2021 at 13:36
--- NOTE | 2021-03-03 11:24 | DI.RAD.S_ITS ---
PROCEDURE: XR LUMBAR SPINE 2-3V INDICATIONS: Progressive kyphosis, prostate cancer, looking for fracture TECHNIQUE: 3 views of the lumbar spine were acquired. COMPARISON: [facility], CT, CHEST/ABD/PEL WITH CONTRAST, 02/03/2016, 13:02. [facility], CT, PE STUDY (CTA CHEST), 07/04/2017, 14:44. [facility], CR, XR THORACIC SPINE 3V, 03/03/2021, 11:43. FINDINGS: Bones: Mild loss of the T11 vertebral body height as before. There is mild height loss of the L1 vertebral body, technically age indeterminate. Remaining vertebral body heights grossly preserved although limited evaluation given severe discogenic changes. Multilevel spondylosis and facet arthropathy, most severe at L2-L3 and L1-L2. Grade 1 retrolisthesis of L2 on L3 and L3 on L4. Mild dextrocurvature. Soft tissues: Scattered vascular calcifications in the aorta. IMPRESSION: Mild L1 compression fracture, technically age indeterminate. To further specify the age, MRI evaluation could be performed. Unchanged mild T11 anterior wedging deformity, chronic. Dictated by: Samir Milton M.D. on 03/03/2021 at 13:36 Approved by: Samir Milton M.D. on 03/03/2021 at 13:52
== END ==
PROVIDERS: Family Provider Internal Medicine; PCP Internal Medicine; Referring Provider Internal Medicine; Visit Provider Internal Medicine
DX: C61 Malignant neoplasm of prostate (principal); M40.295 Other kyphosis, thoracolumbar region; M47.814 Spondylosis without myelopathy or radiculopathy, thoracic region; M48.56XA Collapsed vertebra, not elsewhere classified, lumbar region, initial encounter for fracture; M47.816 Spondylosis without myelopathy or radiculopathy, lumbar region
CPT/HCPCS: 72072; 72100

== ENCOUNTER 2021-03-14 09:45 | Outpatient (RCR) | payer MEDICARE, OTHER, SELFPAY ==
--- NOTE | 2021-02-04 17:54 | PT.OIE ---
Current Diagnoses Benign paroxysmal vertigo, unspecified ear (02/04/21) Dizziness and giddiness (02/04/21) Past Medical History (Last Reviewed 08/31/19 @ 01:36 by Jose Alejandro Thomas DO) Prostate cancer Visit Care Team Role Provider Type Omer Lynn MD Attending Provider Physician Family Provider Primary Care Provider Referring Provider Specialty: Internal Medicine Address: [address] [place] [address], [facility] Email: [email or web address] Physical Therapy Initial Evaluation PT-OP-A Visit Information Start: 02/04/21 17:42 Freq: Status: Active Protocol: Document 02/04/21 16:45 [facility] (Rec: 02/04/21 17:54 [facility] [id number]) Out-Patient Physical Therapy Visit Information Visit Information Visit Type Initial Evaluation Visit Start Time 16:45 Visit Stop Time 17:35 Total Visit Minutes 50 Visit Number 1 Number of LIBRARY ASSISTANT Visits 0 Evaluation Information Evaluation Date 02/04/21 PT-OP-B Current Condition Start: 02/04/21 17:42 Freq: Status: Active Protocol: Document 02/04/21 16:45 [facility] (Rec: 02/04/21 17:54 [facility] [id number]) Current Condition History of Current Condition Onset Date 7 months Current Complaints Positional dizziness History of Current Condition Pt is a 70 year old male complaining of a seven month history of motion-induced vertigo. Pt reports episodes last a few seconds. Symptoms are provoked by laying back in bed, rolling onto his right side, looking up, or bending over. Pt denies recent hearing changes, dysarthria, discoordination, or decreased mentation/consciousness. Pt reports symptoms are waxing/ waning in nature. Pt's medical history is complicated by his metastatic prostate cancer, for which he is taking daily chemo pills for, as well as lupron shots every three months. Pt also has a history of a surgically repairs retinal tear, which frequently causes him to lose focus, get double vision, and have difficulty with depth perception, resulting is occasional confusion whether his symptoms are due to positionla vertigo or just visual disturbances. Prior Treatments and Tests Pt treated with Kai maneuver in PCP clinic, as well as self-Kai multiple times PT-OP-C Subjective Start: 02/04/21 17:42 Freq: Status: Active Protocol: Document 02/04/21 16:45 [facility] (Rec: 02/04/21 17:54 [facility] [id number]) OP-PT Subjective Patient Comments Patient Comments I get a swimmy sensation when I get in certain positions. Patient Questionnaires Dizziness Handicap Inventory DHI Score 24% DHI Functional Impairment 20 to 39% Impaired (Score 20- 39) PT-OP-O Vestibular Start: 02/04/21 17:42 Freq: Status: Active Protocol: Document 02/04/21 16:45 [facility] (Rec: 02/04/21 17:54 DC[facility] [id number]) Vestibular Assessment Screening Tests Vestibular Artery Screen Negative Auditory Tests Nettles Test Within normal limits Rinne Test Negative Air Conduction Results Equal Visual Testing Smooth Pursuits Horizontal WNL Smooth Pursuits Vertical WNL Saccades Horizontal WNL Saccades Vertical WNL Positional Testing [place]-Hallpike Positive Left,Positive Right, Upbeating,< 60 Seconds Rolling Test Negative Left,Negative Right PT-OP-Q Treatments Start: 02/04/21 17:42 Freq: Status: Active Protocol: Document 02/04/21 16:45 [facility] (Rec: 02/04/21 17:54 [facility] [id number]) Canalithic Repositioning BPPV Treatment Kai Affected Canal(s) Right posterior Reps x1 PT-OP-T Assessment and Plan Start: 02/04/21 17:42 Freq: Status: Active Protocol: Document 02/04/21 16:45 [facility] (Rec: 02/04/21 17:54 [facility] [id number]) Physical Therapy Assessment Rehab Potential Rehabilitation Potential Good Evaluation Complexity Number of Personal Factors/Comorbidities 3 or More Number of Body Systems Impaired 1-2 Clinical Presentation at Evaluation Unstable Impairments Impairments Balance,Functional Mobility, Vestibular Goals Two Impairment Positive [place]-Hallpike bilaterally Gravity Prospector Goal (LTG) Pt to exhibit negative positional testing bilaterally One Impairment Pt reports vertigo with positional changes in bed Halfway Goal (LTG) Pt to perform all bed mobility asymptomatically to improve sleep LTG Duration 03/18/21 Assessment Summary Assessment During both left and right [place] -Hallpike test, pt complained of vertigo and demonstrated up -beating, torsional nystagmus lasting approximately 15 seconds, consistent with diagnosis of bilateral posterior canal BPPV, canalithiasis-type, although right was significantly more severe than left. Pt was treated with a left/right- sided modified Kai maneuver. Pt complained of symptoms in the first and third position, which is normally indicative of a successful treatment. Pt was educated on BPPV, expectations for treatment, possible recurrence (BPPV has a ~50% recurrence rate in the five years following treatment ), and post-Kai restrictions . Pt to return within the next week for a follow-up appointment, and intermittently afterward as indicated for treatment of BPPV. Physical Therapy Plan Frequency and Duration Frequency of Treatment 2x/Week Duration of Treatment Six weeks Plan of Care Start Date 02/04/21 Plan of Care End Date 03/18/21 Therapeutic Interventions Therapeutic Interventions Balance Training,Canalithic Repositioning,Neuromuscular Re -education,Vestibular Rehabilitation Next Visit Focus/Plan Next Note Type Treatment Note Next Visit Plan Positional testing, CRM as indicated
--- NOTE | 2021-02-04 17:54 | PT.OPPOC ---
Physical, Occupational & Speech Therapy At [facility] Current Diagnoses Benign paroxysmal vertigo, unspecified ear (02/04/21) Dizziness and giddiness (02/04/21) Visit Care Team Role Provider Type Omer Lynn MD Attending Provider Physician Family Provider Primary Care Provider Referring Provider Specialty: Internal Medicine Address: [address] [place] [address], [facility] Email: [email or web address] Plan Of Care PT-OP-T Assessment and Plan Start: 02/04/21 17:42 Freq: Status: Active Protocol: Document 02/04/21 16:45 DC[facility] (Rec: 02/04/21 17:54 DC[facility] [id number]) Physical Therapy Assessment Rehab Potential Rehabilitation Potential Good Evaluation Complexity Number of Personal Factors/Comorbidities 3 or More Number of Body Systems Impaired 1-2 Clinical Presentation at Evaluation Unstable Impairments Impairments Balance,Functional Mobility, Vestibular Goals Two Impairment Positive [place]-Hallpike bilaterally Long-Term Goal (LTG) Pt to exhibit negative positional testing bilaterally One Impairment Pt reports vertigo with positional changes in bed Long-Term Goal (LTG) Pt to perform all bed mobility asymptomatically to improve sleep LTG Duration 03/18/21 Assessment Summary Assessment During both left and right [place] -Hallpike test, pt complained of vertigo and demonstrated up -beating, torsional nystagmus lasting approximately 15 seconds, consistent with diagnosis of bilateral posterior canal BPPV, canalithiasis-type, although right was significantly more severe than left. Pt was treated with a left/right- sided modified Kai maneuver. Pt complained of symptoms in the first and third position, which is normally indicative of a successful treatment. Pt was educated on BPPV, expectations for treatment, possible recurrence (BPPV has a ~50% recurrence rate in the five years following treatment ), and post-Kai restrictions . Pt to return within the next week for a follow-up appointment, and intermittently afterward as indicated for treatment of BPPV. Physical Therapy Plan Frequency and Duration Frequency of Treatment 2x/Week Duration of Treatment Six weeks Plan of Care Start Date 02/04/21 Plan of Care End Date 03/18/21 Therapeutic Interventions Therapeutic Interventions Balance Training,Canalithic Repositioning,Neuromuscular Re -education,Vestibular Rehabilitation Next Visit Focus/Plan Next Note Type Treatment Note Next Visit Plan Positional testing, CRM as indicated Plan of Care Dates Plan of Care Start Date 02/04/21 Plan of Care End Date 03/18/21 Electronically Signed by: Berto Vazquez, PT 02/04/21 [id number] Please Sign and Return: I have reviewed this Plan of Care and certify that the skilled therapy services above are required to meet the patient?s needs. Physician Signature Date Printed Name and Credentials Clinical Instructor Signature Printed Name and Credentials
--- NOTE | 2021-02-06 15:56 | PT.OTN ---
Current Diagnoses Benign paroxysmal vertigo, unspecified ear (02/06/21) Dizziness and giddiness (02/06/21) Physical Therapy Treatment Note PT-OP-A Visit Information Start: 02/04/21 17:42 Freq: Status: Active Protocol: Document 02/06/21 15:15 DC[facility] (Rec: 02/06/21 15:56 DCW [id number]) Out-Patient Physical Therapy Visit Information Visit Information Visit Type Treatment Note Visit Start Time 15:15 Visit Stop Time 15:45 Total Visit Minutes 30 Visit Number 2 Number of CLAY MOLDER Visits 0 Evaluation Information Evaluation Date 02/04/21 PT-OP-B Current Condition Start: 02/04/21 17:42 Freq: Status: Active Protocol: Document 02/04/21 16:45 [facility] (Rec: 02/04/21 17:54 DCW [id number]) Current Condition History of Current Condition Onset Date 7 months Current Complaints Positional dizziness History of Current Condition Pt is a 70 year old male complaining of a seven month history of motion-induced vertigo. Pt reports episodes last a few seconds. Symptoms are provoked by laying back in bed, rolling onto his right side, looking up, or bending over. Pt denies recent hearing changes, dysarthria, discoordination, or decreased mentation/consciousness. Pt reports symptoms are waxing/ waning in nature. Pt's medical history is complicated by his metastatic prostate cancer, for which he is taking daily chemo pills for, as well as lupron shots every three months. Pt also has a history of a surgically repairs retinal tear, which frequently causes him to lose focus, get double vision, and have difficulty with depth perception, resulting is occasional confusion whether his symptoms are due to positionla vertigo or just visual disturbances. Prior Treatments and Tests Pt treated with Kai maneuver in PCP clinic, as well as self-Kai multiple times PT-OP-C Subjective Start: 02/04/21 17:42 Freq: Status: Active Protocol: Document 02/06/21 15:15 DCW (Rec: 02/06/21 15:55 DCW [id number]) OP-PT Subjective Patient Comments Patient Comments It's been marvelous. 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 Slept much better, did roll onto his right side in the middle of the night, got a very brief feeling of vertigo, turned back to his left side, and everything calmed down, was still a llittle swimmy in the AM, performed a self- Kai, and felt better afterward. PT-OP-O Vestibular Start: 02/04/21 17:42 Freq: Status: Active Protocol: Document 02/06/21 15:15 DCW (Rec: 02/06/21 15:55 DCW [id number]) Vestibular Assessment Positional Testing [place]-Hallpike Positive Left,Positive Right, Upbeating,< 60 Seconds Rolling Test Negative Left,Negative Right PT-OP-Q Treatments Start: 02/04/21 17:42 Freq: Status: Active Protocol: Document 02/06/21 15:15 DCW (Rec: 02/06/21 15:55 DCW [id number]) Canalithic Repositioning BPPV Treatment Kai Affected Canal(s) Right posterior Reps x3 PT-OP-T Assessment and Plan Start: 02/04/21 17:42 Freq: Status: Active Protocol: Document 02/06/21 15:15 [facility] (Rec: 02/06/21 15:55 DCW [id number]) Physical Therapy Assessment Impairments Impairments Balance,Functional Mobility, Vestibular Goals Two Impairment Positive [place]-Hallpike bilaterally Senior Care Goal (LTG) Pt to exhibit negative positional testing bilaterally One Impairment Pt reports vertigo with positional changes in bed Helper [employer] Fabrication Goal (LTG) Pt to perform all bed mobility asymptomatically to improve sleep LTG Duration 03/18/21 Assessment Summary Assessment Pt continues to exhibit signs of bilateral posterior canal BPPV, although right side was significantly less severe than he was at his evaluation. Pt tolerated right-sided Kai well, although repeated testing was still positive. Pt should benefit from follow-up appointment to reassess right BPPV and, if negative, treat left. Physical Therapy Plan Frequency and Duration Frequency of Treatment 2x/Week Duration of Treatment Six weeks Plan of Care Start Date 02/04/21 Plan of Care End Date 03/18/21 Therapeutic Interventions Therapeutic Interventions Balance Training,Canalithic Repositioning,Neuromuscular Re -education,Vestibular Rehabilitation Next Visit Focus/Plan Next Note Type Treatment Note Next Visit Plan Positional testing, CRM as indicated
--- NOTE | 2021-03-10 16:44 | PT.OTN ---
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 Pt reports episodes last a few seconds. Symptoms are provoked by laying back in bed, rolling onto his right side, looking up, or bending over. Pt denies recent hearing changes, dysarthria, discoordination, or decreased mentation/consciousness. Pt reports symptoms are waxing/ waning in nature. Pt's medical history is complicated by his metastatic prostate cancer, for which he is taking daily chemo pills for, as well as lupron shots every three months. Pt also has a history of a surgically repairs retinal tear, which frequently causes him to lose focus, get double vision, and have difficulty with depth perception, resulting is occasional confusion whether his symptoms are due to positionla vertigo or just visual disturbances. Prior Treatments and Tests Pt treated with Kai maneuver in PCP clinic, as well as self-Kai multiple times PT-OP-C Subjective Start: 02/04/21 17:42 Freq: Status: Active Protocol: Document 03/10/21 16:00 DCW (Rec: 03/10/21 16:44 DCW [id number]) OP-PT Subjective Patient Comments Patient Comments I'm doing okay. I could be better, I could be a lot worse . I still can't lay on my right side. PT-OP-O Vestibular Start: 02/04/21 17:42 Freq: Status: Active Protocol: Document 03/10/21 16:00 DCW (Rec: 03/10/21 16:44 DCW [id number]) Vestibular Assessment Positional Testing [place]-Hallpike Positive Left,Positive Right, Upbeating,< 60 Seconds Rolling Test Negative Left,Negative Right PT-OP-Q Treatments Start: 02/04/21 17:42 Freq: Status: Active Protocol: Document 03/10/21 16:00 DCW (Rec: 03/10/21 16:44 DCW [id number]) Canalithic Repositioning BPPV Treatment Kai Affected Canal(s) Bilateral posterior Reps x1 each PT-OP-T Assessment and Plan Start: 02/04/21 17:42 Freq: Status: Active Protocol: Document 03/10/21 16:00 DCW (Rec: 03/10/21 16:44 DCW [id number]) Physical Therapy Assessment Impairments Impairments Balance,Functional Mobility, Vestibular Goals Two Impairment Positive [place]-Hallpike bilaterally Senior Living Goal (LTG) Pt to exhibit negative positional testing bilaterally One Impairment Pt reports vertigo with positional changes in bed Getter Welder Goal (LTG) Pt to perform all bed mobility asymptomatically to improve sleep LTG Duration 03/18/21 Assessment Summary Assessment Pt still exhibiting signs of bilateral posterior canal BPPV , although fairly mild symptoms bilaterally. Pt tolerated right-sided Kai well, but had noticeable up- beating, torsional nystagmus in position two, so a left modified Kai was also performed. Pt should benefit from follow-up appointment to reassess bilateral BPPV. Physical Therapy Plan Frequency and Duration Frequency of Treatment 2x/Week Duration of Treatment Six weeks Plan of Care Start Date 02/04/21 Plan of Care End Date 03/18/21 Therapeutic Interventions Therapeutic Interventions Balance Training,Canalithic Repositioning,Neuromuscular Re -education,Vestibular Rehabilitation Next Visit Focus/Plan Next Note Type Treatment Note Next Visit Plan Positional testing, CRM as indicated
--- NOTE | 2021-03-14 10:11 | PT.OTN ---
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 Pt reports episodes last a few seconds. Symptoms are provoked by laying back in bed, rolling onto his right side, looking up, or bending over. Pt denies recent hearing changes, dysarthria, discoordination, or decreased mentation/consciousness. Pt reports symptoms are waxing/ waning in nature. Pt's medical history is complicated by his metastatic prostate cancer, for which he is taking daily chemo pills for, as well as lupron shots every three months. Pt also has a history of a surgically repairs retinal tear, which frequently causes him to lose focus, get double vision, and have difficulty with depth perception, resulting is occasional confusion whether his symptoms are due to positionla vertigo or just visual disturbances. Prior Treatments and Tests Pt treated with Kai maneuver in PCP clinic, as well as self-Kai multiple times PT-OP-C Subjective Start: 02/04/21 17:42 Freq: Status: Active Protocol: Document 03/14/21 09:50 DCW (Rec: 03/14/21 10:11 DCW [id number]) OP-PT Subjective Patient Comments Patient Comments Pt feels fantastic the last two days. Admits he felt weird, and a little off over the two day following his last visit, but then has been doing much better since, even able to sleep on his right side last night for the first time in a very long time. PT-OP-O Vestibular Start: 02/04/21 17:42 Freq: Status: Active Protocol: Document 03/14/21 09:50 DCW (Rec: 03/14/21 10:11 DCW [id number]) Vestibular Assessment Positional Testing [place]-Hallpike Negative Left,Negative Right Rolling Test Negative Left,Negative Right PT-OP-Q Treatments Start: 02/04/21 17:42 Freq: Status: Active Protocol: Document 03/14/21 09:50 DCW (Rec: 03/14/21 10:11 DCW [id number]) Manual Therapy Treatment Other Other Manual Treatments Positional testing PT-OP-T Assessment and Plan Start: 02/04/21 17:42 Freq: Status: Active Protocol: Document 03/14/21 09:50 DCW (Rec: 03/14/21 10:11 DCW [id number]) Physical Therapy Assessment Impairments Impairments Balance,Functional Mobility, Vestibular Goals Two Impairment Positive [place]-Hallpike bilaterally Skilled Nursing Goal (LTG) Pt to exhibit negative positional testing bilaterally LTG Duration Met One Impairment Pt reports vertigo with positional changes in bed Skilled Nursing Goal (LTG) Pt to perform all bed mobility asymptomatically to improve sleep LTG Duration Met Assessment Summary Assessment Positional testing entirely negative today, no further signs or symptoms of BPPV. Pt will be discharged from skilled vestibular therapy at this time. Pt will require a new referral in order to return if needed. Physical Therapy Plan Frequency and Duration Frequency of Treatment 2x/Week Duration of Treatment Six weeks Plan of Care Start Date 02/04/21 Plan of Care End Date 03/18/21 Therapeutic Interventions Therapeutic Interventions Balance Training,Canalithic Repositioning,Neuromuscular Re -education,Vestibular Rehabilitation Next Visit Focus/Plan Next Note Type Treatment Note Next Visit Plan Positional testing, CRM as indicated
== END 2021-03-17 08:59 | disposition home or self-care (01) ==
LOC: PHYS 09:45
PROVIDERS: Family Provider Internal Medicine; PCP Internal Medicine; Referring Provider Internal Medicine; Visit Provider Internal Medicine
DX: H81.10 Benign paroxysmal vertigo, unspecified ear (principal)
CPT/HCPCS: 95992; 97140; 97161

== ENCOUNTER → 2022-02-27 10:48 | Outpatient (CLI) | payer MEDICARE, OTHER, SELFPAY ==
--- NOTE | 2022-02-27 | DI.NM.S_ITS ---
PROCEDURE: [place] BONE SCAN WHOLE BODY RADIOPHARMACEUTICAL: 18.7 mCi Tc-99m MDP IV. INDICATIONS: Pain in right hip. History of prostate cancer. TECHNIQUE: Delayed whole-body scintigrams were obtained approximately 3-4 hours after intravenous injection of radiotracer. Anterior and posterior views were acquired from vertex to feet. Additional left and right oblique views of pelvis, the hips and proximal femurs were obtained. COMPARISON: Located Within [facility], CR, FOREARM RIGHT, 06/16/2010, 13:00. [place], [place], BONE SCAN WHOLE BODY, 01/14/2015, 11:22. Located [facility], CT, CHEST/ABD/PEL WITH CONTRAST, 02/03/2016, 13:02. [facility], [place], XR THORACIC SPINE 3V, 03/03/2021, 11:43. Located [facility], CR, XR LUMBAR SPINE 2-3V, 03/03/2021, 11:43. [place], BONE SCAN WHOLE BODY, 10/28/2015, 13:02. [place], BONE SCAN WHOLE BODY, 01/18/2017, 13:10. Located [facility], CR, XR HIP W PEL IF DONE RT 2V, 07/12/2020, 11:57. [facility], CR, XR PELVIS WITH LATERAL HIP RIGHT, 02/04/2022, 9:32. FINDINGS: There is intense abnormal uptake projecting to the area of the right hip, consistent with severe osteoarthritis are seen on the comparison x-ray. There is abnormal uptake involving right side of L3, correlating with a sclerotic lesion on the comparison CT, consistent with osseous metastasis. 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 Compared to the last bone scan dated 01/18/2017, there is no significant change. No lesions are identified in skull, sternum, clavicles, scapulae, ribs, bony pelvis, and visualized shafts of the long bones. There is low level increased uptake in cervical, thoracic and lumbar spine with distribution indistinguishable from degenerative disc and facet disease; early metastasis to spine could be obscured by degenerative changes. There are foci of increased periarticular activity involving shoulders, compatible with degenerative/arthritic changes. IMPRESSION: 1. Intense uptake in the right hip correlating with radiographic finding of severe osteoarthritis. 2. Abnormal uptake in L3 vertebral body and right forearm are stable. Please correlate with PSA. Dictated by: Zahraa Prince M.D. on 02/27/2022 at 16:55 Approved by: Zahraa Prince M.D. on 02/27/2022 at 17:04
== END ==
PROVIDERS: Family Provider Internal Medicine; PCP Internal Medicine; Referring Provider Orthopaedic Surgery; Visit Provider Orthopaedic Surgery
DX: M16.11 Unilateral primary osteoarthritis, right hip (principal); M25.551 Pain in right hip; M89.9 Disorder of bone, unspecified; Z85.46 Personal history of malignant neoplasm of prostate
CPT/HCPCS: 78306; A9503

== ENCOUNTER → 2022-03-25 10:35 | Outpatient (CLI) | payer MEDICARE, OTHER, SELFPAY | PROVIDERS: Family Provider Internal Medicine; PCP Internal Medicine; Referring Provider Internal Medicine; Visit Provider Physician Assistant | DX: M81.0 Age-related osteoporosis without current pathological fracture (principal); Z79.890 Hormone replacement therapy | CPT/HCPCS: 77080 ==

== ENCOUNTER → 2025-07-12 19:18 | Outpatient (ROUT) | payer MEDICARE, OTHER, SELFPAY | PROVIDERS: Family Provider Internal Medicine; PCP Internal Medicine; Visit Provider Dermatology | DX: L03.90 Cellulitis, unspecified (principal) | CPT/HCPCS: 87070; 87075; 87205 ==